=== PATIENT | female | born 1965 | race Two or more races ===

== ENCOUNTER 2021-06-01 11:43 | Outpatient (REF) | payer MEDICAID, SELFPAY ==
--- NOTE | ~2021-06-01 | XR_ITS ---
EXAMINATION: XR KNEE, RIGHT CLINICAL INFORMATION: Pain COMPARISON: Previous x-ray May 2016 TECHNIQUE: Four views of the right knee. FINDINGS: Bone alignment is normal. No fracture or dislocation is seen. There is mild degenerative change at the medial femoral tibial and with joint space narrowing and patellofemoral joint with small osteophytes. There are small osteophytes at the quadriceps tendon insertion to the patella and patellar tendon origin. There is no joint effusion. XR/XR knee RT 4V IMPRESSION: Mild degenerative changes.
== END 2021-06-01 11:44 | disposition home or self-care (01) ==
LOC: HO.XRAY 11:43
PROVIDERS: PCP Internal Medicine Geriatric Medicine; Visit Provider Internal Medicine Geriatric Medicine
DX: M25.561 Pain in right knee (principal)
CPT/HCPCS: 73564

== ENCOUNTER 2023-08-27 09:24 | Outpatient (REF) | payer MEDICAID, SELFPAY ==
--- NOTE | ~2023-08-27 | XR_ITS ---
EXAMINATION: XR KNEE, RIGHT CLINICAL INFORMATION: Pain in the right knee following fall 2 weeks ago COMPARISON: 08/27/2023 TECHNIQUE: Four views of the right knee. FINDINGS: There are mild degenerative changes seen joint effusion seen. There is narrowing of the medial compartment of left knee joint with marginal spurring. There is no fracture seen. Soft tissues are otherwise are unremarkable. XR/XR knee RT 4V IMPRESSION: Small joint effusion and degenerative changes
--- NOTE | ~2023-08-27 | XR_ITS ---
EXAMINATION: XR KNEE, LEFT CLINICAL INFORMATION: Pain after fall 2 weeks ago COMPARISON: None available. TECHNIQUE: Four views of the left knee. FINDINGS: There is no evidence of fracture or dislocation and no joint effusion seen. There is mild narrowing of medial compartment of left knee joint with marginal spur spurring seen medially. XR/XR knee LT 4V IMPRESSION: Mild degenerative changes of the left knee joint. No fracture or joint effusion seen.
== END 2023-08-27 09:25 | disposition home or self-care (01) ==
LOC: HO.HHCX 09:24
PROVIDERS: Visit Provider Internal Medicine Geriatric Medicine
DX: M25.561 Pain in right knee (principal); M25.562 Pain in left knee
CPT/HCPCS: 73564

== ENCOUNTER 2023-09-27 | Outpatient (REF) | payer MEDICAID, SELFPAY ==
[2023-10-01 23:54] LABS: HPV mRNA E6/E7 rflx Not Detected (Not Detected)
== END 2023-09-27 00:01 ==
LOC: HO.HHCLNP
PROVIDERS: Visit Provider Advanced Practice Midwife
DX: Z12.4 Encounter for screening for malignant neoplasm of cervix (principal); Z11.51 Encounter for screening for human papillomavirus (HPV)
CPT/HCPCS: 87624; 88142

== ENCOUNTER 2023-11-20 13:52 | Outpatient (REF) | payer MEDICAID, SELFPAY ==
[2023-11-20 16:24] LABS: MANUAL DIFF FLAG NO
[2023-11-20 16:25] LABS: Basophils Percent Auto 0.4 % (0-2); Eosinophils Absolute Auto 0.1 X10*3/uL (0.0-0.4); Eosinophils Percent Auto 0.9 % (0-4); Hemoglobin 14.9 g/dl (12.0-16.0); Imm Gran Abs Auto 0.04 X10*3/uL (0.00-0.03); Imm Gran Pct Auto 0.4 % (0.0-0.4); Lymphocytes Absolute Auto 1.7 X10*3/uL (1.2-4.9); Lymphocytes Percent Auto 17.4 % (20-40); Mean Corpuscular HGB Conc 33.1 g/dl (31.0-35.0); Mean Corpuscular Hemoglobin 30.5 pg (27.0-33.0); Mean Corpuscular Volume 92.2 fL (80.0-98.0); Mean Platelet Volume 12.6 fL (9.4-12.3); Monocytes Absolute Auto 0.7 X10*3/uL (0.1-1.2); Neutrophils Absolute Auto 7.1 x10*3/uL (2.0-8.3); Neutrophils Percent Auto 73.9 % (45-73); Platelet Count 251 X10*3/uL (160-400); Red Blood Count 4.88 X10*6/uL (4.20-5.50); Red Cell Distribution Width 12.9 % (11.0-16.0); White Blood Count 9.6 X10*3/uL (4.8-10.8)
[2023-11-20 17:01] LABS: Alanine Aminotransferase 29 U/L (0-31); Albumin Level 4.6 g/dL (3.5-5.0); Alkaline Phosphatase 126 U/L (39-117); Anion Gap 13 (12-20); Aspartate Amino Transferase 26 U/L (5-31); Bilirubin Total 0.4 mg/dL (0.0-1.0); Blood Urea Nitrogen 9 mg/dL (9-16); Calcium 10.3 mg/dL (8.4-10.2); Carbon Dioxide 33 mmol/L (22-29); Chloride 97 mmol/L (96-108); Estimated Glomerular Filt Rate > 60; Glucose Random 162 mg/dL (60-115); Sodium 140 mmol/L (135-145); Total Protein 8.9 g/dL (6.5-8.0)
[2023-11-20 17:10] LABS: Erythrocyte Sedimentation Rate 36 MM/HR (0-20)
[2023-11-20 17:17] LABS: TSH reflex Free T4 3.14 uIU/mL (0.32-4.0)
== END 2023-11-20 13:53 | disposition home or self-care (01) ==
LOC: HO.HHCL 13:52
PROVIDERS: Visit Provider Internal Medicine Geriatric Medicine
DX: E11.65 Type 2 diabetes mellitus with hyperglycemia (principal); R00.0 Tachycardia, unspecified; Z79.4 Long term (current) use of insulin
CPT/HCPCS: 36415; 80053; 84443; 85025; 85652; 86140

== ENCOUNTER 2023-12-11 15:03 | Outpatient (REF) | payer MEDICAID, SELFPAY ==
[2023-12-11 16:37] LABS: Anion Gap 12 (12-20); Blood Urea Nitrogen 11 mg/dL (9-16); Calcium 9.2 mg/dL (8.4-10.2); Carbon Dioxide 31 mmol/L (22-29); Chloride 101 mmol/L (96-108); Estimated Glomerular Filt Rate > 60; Glucose Random 243 mg/dL (60-115); Potassium 3.3 mmol/L (3.3-5.1); Sodium 141 mmol/L (135-145)
== END 2023-12-11 15:04 | disposition home or self-care (01) ==
LOC: HO.HHCL 15:03
PROVIDERS: Visit Provider Internal Medicine Geriatric Medicine
DX: E87.6 Hypokalemia (principal)
CPT/HCPCS: 36415; 80048

== ENCOUNTER → 2024-01-11 12:30 | Outpatient (REF) | payer MEDICAID, SELFPAY ==
--- NOTE | 2024-01-11 12:34 | CA_ITS ---
Transthoracic Echocardiogram Patient (Last, First, Middle): Ashley Osborne Y Gender: Female Date of : 1965 Age: 58 Procedure Date: 01/11/2024 Procedure Type: Transthoracic Echocardiogram Location: OP Height: 160.02 cm Weight: 102.06 kg BSA: 2.03 m2 Heart Rate: bpm BP: 138 / 70 mmHg Radio Performer: TO Referring MD: Mark Juan MD Symptoms: ABNORMAL ECHO R93.1 Study Quality: Fair/Contrast ECG Rhythm: Sinus Conclusions: - The left ventricular systolic function is normal. The calculated ejection fraction is 64% by biplane method. - No obvious valvular pathology seen on this study. - Small to moderate pericardial effusion posterior to left ventricle. Findings Procedure Information Contrast agent, definity, is being given per protocol without apparent complications. The study quality is limited by patients body habitus. Left Ventricle Normal left ventricular cavity size. There is normal left ventricular wall thickness. The left ventricular systolic function is normal. The calculated ejection fraction is 64% by biplane method. There is no evidence of regional wall motion abnormalities. Evidence suggests grade I (mild) diastolic dysfunction. Right Ventricle Normal right ventricular cavity size and systolic function. Atria Both atria are normal in size. Aortic Valve There is a normal trileaflet aortic valve. There is no aortic valve stenosis. There is no aortic valve regurgitation. Mitral Valve The mitral valve appears normal. There is trace mitral valve regurgitation. There is no mitral valve stenosis. Pulmonic Valve The pulmonic valve is likely normal. Tricuspid Valve There is trace tricuspid valve regurgitation. There is no evidence of pulmonary hypertension. Great Vessels The asc aorta is normal in size. Venous The inferior vena cava is mildly dilated and collapses less than 50% with inspiration. Pericardium/Pleural There are no definitive echocardiographic findings of tamponade physiology. Small to moderate pericardial effusion posterior to left ventricle. Prior Study Comparison No significant change compared to prior study dated: 06/29/2017. Pericardial effusion similar to prior study on review of images. Recommendations, Care & Conclusions No obvious valvular pathology seen on this study. Measurements 2D Linear Measurements LVOT Diam: 2.00 3.0+(-)1.3 cm 2D Systolic Function EF 4C: 61.70 >55% EF 2C: 67.70 >55% EF BiP: 64.40 >55% Mitral Valve MV VTI: 0.27 MV Pk Chinedu: 1.18 MV Mn Chinedu: 0.78 MV Pk Grad: 6.00 MV Mn Grad: 3.00 MV Pk E: 0.79 MV PK A: 1.08 MV Decel Time: 142.00 E/A: 0.70 E'Lateral: 6.74 E'Medial: 6.09 E/E' Med: 13.00 E/E' Lat: 11.80 PHT: 42.00 MVA PHT: 5.24 MVA Continuity: 2.75 Decel [place]: 5.57 Aortic Valve AoV Pk Chinedu: 1.54 AoV Mn Chinedu: 1.02 AoV VTI: 0.30 AoV Pk Grad: 9.00 Aov Mn Grad: 5.00 DARION Cont.VTI: 2.44 LVOT LVOT Pk Chinedu: 1.16 LVOT Mn Chinedu: 0.74 LVOT VTI: 0.23 LVOT Pk Grad: 5.00 LVOT Mn Grad: 3.00 LVOT Diam: 2.00 LVOT Area: 3.14 Diastolic Function MV Pk E: 0.79 MV Pk A: 1.08 E/A: 0.70 E'Medial: 6.09 E/E' Med: 13.00 E' Laterial: 6.74 E/E' Lat: 11.80 Right Ventricle TAPSE (mm): 18.50 TVS' Chinedu: 11.90 Tricuspid Valve TR Pk Chinedu: 1.95 TR Pk Grad: 15.00 RA Press: 8.00 RVSP: 23.00 Great Vessels Aorta Sinus of Valsalva: 2.83 2.0-3.5 cm Ao Asc: 2.70 2.1-3.4 cm Updated in Other Vendor System with Status of Final Tobias Francis MD electronically signed on 01/12/2024 12:51:13 PM with status of Final
== END ==
LOC: HO.CARD 12:30
PROVIDERS: PCP Internal Medicine Geriatric Medicine; Visit Provider Internal Medicine Geriatric Medicine
DX: R93.1 Abnormal findings on diagnostic imaging of heart and coronary circulation (principal)
CPT/HCPCS: 93306; Q9957

== ENCOUNTER → 2024-01-11 12:34 | Outpatient (BNV) | payer MEDICAID, SELFPAY | PROVIDERS: PCP Internal Medicine Geriatric Medicine; Visit Provider Internal Medicine | DX: I31.39 Other pericardial effusion (noninflammatory) (principal) | CPT/HCPCS: 93306 ==

== ENCOUNTER 2024-04-30 13:16 | Outpatient (AMB) | payer MEDICAID, SELFPAY ==
--- NOTE | 2024-04-30 13:44 | MHC.OFFVIS ---
Vital Signs 04/30/24 13:45 Height 5 ft 3 in Weight 222 lb 10.67 oz BMI 39.4 BP 118/60 Blood Pressure Location Lt brachial Position Sitting Pulse 99 Pulse Source Monitor Intake Visit Reasons: PCP REF/Chronic pericardial effusion Forging Die Sinker Required: Yes Forging Die Sinker Name: SMITH [id number] Allergies latex [Latex] Allergy (Mild, Unverified 06/10/20 17:38) RASH Medication List - Last Reconciled 04/30/24 by Tobias Francis MD amitriptyline 50 mg PO BEDTIME cholecalciferol (vitamin D3) 50 mcg PO QAM hydrochlorothiazide 25 mg PO QAM insulin lispro 24 units subcut TID insulin lispro protamin-lispro 100 unit/mL (50-50) (Humalog Mix 50-50 Insuln U-100) 25 units subcut DAILY losartan 25 mg PO QAM metoprolol tartrate 25 mg PO montelukast 10 mg PO BEDTIME multivitamin 1 tab PO QAM pravastatin 20 mg PO BEDTIME quetiapine 400 mg PO BEDTIME sitagliptin phos-metformin 50-500 mg (Janumet) 1 tab PO BID HPI Comments Details: Ashley has been referred here for evaluation of pericardial effusion. She had an echocardiogram few months back and that showed a small pericardial effusion. Patient herself does not have any clear cardiac symptoms like chest pains or in fact anything else of cardiac nature. She has many comorbidities but no known cardiac issues. [facility] Medical History (Updated 04/30/24 @ 15:23 by Tobias Francis MD) Pericardial effusion Asthma Diabetes Family History (Updated 04/30/24 @ 14:04 by Deb Natarajan) Father Heart problem Social History (Updated 04/30/24 @ 14:04 by Deb Natarajan) Alcohol intake: never Patient Tobacco Use Status: Never used Tobacco Review of Systems Const Denies weakness ENT Denies dizziness Card Denies chest pain, Denies chest pain with activity, Denies syncope, Denies rapid heart rate, Denies pedal edema, Denies edema, Denies leg edema, Denies lightheadedness, Denies palpitations, Denies dyspnea, Denies dyspnea on exertion and Denies orthopnea Resp Denies cough, Denies dyspnea and Denies dyspnea on exertion GI Denies hematochezia and Denies change in stool character Musc Denies abnormal gait, Denies muscle cramps, Denies muscle weakness, Denies numbness, Denies radiating pain into limb and Denies tingling Neuro Denies abnormal gait, Denies dizziness, Denies syncope, Denies numbness, Denies tingling and Denies weakness Endo Denies palpitations Physical Exam Vital Signs: Last Vital Signs Pulse 99 04/30/24 13:45 BP 118/60 04/30/24 13:45 BMI result Body Mass Index 39.4 Const General: comfortable and no acute distress Orientation/consciousness: patient oriented x3 HEENT Other: Unremarkable Head: Yes normal to inspection Neck Neck: Yes normal visual inspection Chest Chest palpation & inspection: normal inspection of the chest Resp Auscultation: clear to auscultation bilaterally Cardio Palpation: normal PMI Heart sounds: S1 normal heart sound present, S2 normal heart sound present, no gallops, no murmurs and no rubs GI Palpation (GI): Soft to palpation Back/Spine/Pelvis Other: unremarkable Skin General skin exam: no rashes or lesions noted Neuro General: patient oriented x3 Extrem General: Yes normal to inspection Psych Mental Status: mental status grossly normal Office Procedures EKG Details: EKG with underlying sinus rhythm at 99/Min; low-voltage QRS complexes; nonspecific ST-T changes; slight AR prolongation to 208 millisecond; [place]. [id number], Complete Assessment & Plan Assessment & Plan (1) Pericardial effusion: Code(s): I31.39 - Other pericardial effusion (noninflammatory) Category: Medical Plan Cardiac data reviewed. Echocardiogram from December of this year shows a small to moderate pericardial effusion posterior to left ventricle. Of note, thought to be similar to a prior study from 2017. Hence it has been stable for at least 7 years. Preserved LVEF at 64%. In a [facility] echocardiogram from September of this year, it was thought to be either pericardial fat or organized pericardial effusion. In a CT scan at [facility] again from September of this year, again noticed pericardial effusion and small pleural effusions. Overall, suspect that she has a chronic pericardial effusion which is not really causing any symptoms. Hence no specific management. We can probably recheck this with an echocardiogram in about 2 years or so as there are not been any clinically significant changes in at least 7 years. Etiology for this is unclear. It seems she does have elevated sed rate and CRP and hence could point to an inflammatory state but rheumatoid factor and KATE screen is negative. Unremarkable thyroid. No history of CKD. Findings and plan discussed with patient as well as significant other. biomedical engineering technologist used. Coding Level of Care Code New Pt Level 4 (14404) Diagnoses Pericardial effusion I31.39 CPT Codes EKG - CPT: 84859-[id number], Complete ([id number])
[2024-04-30 13:45] VITALS: BP 118/60; PULSE 99; BMI 39.4
== END 2024-04-30 14:20 | disposition home or self-care (01) ==
PROVIDERS: PCP Internal Medicine Geriatric Medicine; Visit Provider Internal Medicine
DX: I31.39 Other pericardial effusion (noninflammatory) (principal); R94.31 Abnormal electrocardiogram [ECG] [EKG]
CPT/HCPCS: 93010; 99214

== ENCOUNTER → 2024-04-30 13:16 | Outpatient (BNVA) | payer MEDICAID, SELFPAY | PROVIDERS: PCP Internal Medicine Geriatric Medicine; Visit Provider Internal Medicine | DX: I31.39 Other pericardial effusion (noninflammatory) (principal); R94.31 Abnormal electrocardiogram [ECG] [EKG] | CPT/HCPCS: 93005; 99212 ==

== ENCOUNTER 2024-08-18 10:14 | Outpatient (REF) | payer MEDICAID, SELFPAY ==
[2024-08-18 13:56] LABS: Alanine Aminotransferase 39 U/L (0-31); Albumin Level 4.3 g/dL (3.5-5.0); Alkaline Phosphatase 105 U/L (39-117); Anion Gap 11 (12-20); Aspartate Amino Transferase 32 U/L (5-31); Bilirubin Direct 0.2 mg/dL (0.0-0.5); Bilirubin Total 0.3 mg/dL (0.0-1.0); Blood Urea Nitrogen 8 mg/dL (9-16); Calcium 9.4 mg/dL (8.4-10.2); Carbon Dioxide 31 mmol/L (22-29); Chloride 99 mmol/L (96-108); Cholesterol 218 mg/dL (<200); Estimated Glomerular Filt Rate > 60; Glucose Random 147 mg/dL (60-115); HDL Cholesterol 56 mg/dL (>40); LDL Cholesterol Calculated 135 mg/dL (<100); Potassium 3.4 mmol/L (3.3-5.1); Sodium 138 mmol/L (135-145); Triglycerides 136 mg/dL (<150)
== END 2024-08-18 10:15 | disposition home or self-care (01) ==
LOC: HO.HHCL 10:14
PROVIDERS: Visit Provider Internal Medicine Geriatric Medicine
DX: E11.65 Type 2 diabetes mellitus with hyperglycemia (principal); Z79.4 Long term (current) use of insulin; R79.89 Other specified abnormal findings of blood chemistry
CPT/HCPCS: 36415; 80048; 80061; 80076

== ENCOUNTER 2024-09-03 14:27 | Outpatient (REF) | payer MEDICAID, SELFPAY ==
--- NOTE | 2024-09-03 14:30 | EMG_ITS ---
Chief complaint: Patient states only right side is numb Reason for referral: Evaluate for Carpal Tunnel Syndrome Referred by: Dr. Juan Procedure done: Right upper extremity NCS/EMG Precautions and/or limitations: None The limb temperature was monitored continuously and remained between 32-36 degrees C during the performance of the NCS. Nerve Conduction Studies Anti Sensory Summary Table ?Stim Site NR Onset (ms) Norm Onset (ms) Peak (ms) Norm Peak (ms) O-P Amp (?V) Norm O-P Amp Site1 Site2 Delta-0 (ms) Dist (cm) Chinedu (m/s) Norm Chinedu (m/s) Right Median Anti Sensory (2nd Digit) Wrist ? 2.7 3.6 <3.6 46.9 >10 Wrist 2nd Digit 2.7 14.0 52 Right Radial Anti Sensory (Thumb) Forearm ? 1.2 2.1 <3.1 19.0 Forearm Thumb 1.2 0.0 Right Ulnar Anti Sensory (5th Digit) Wrist ? 0.9 3.1 <3.7 20.1 >15.0 Wrist 5th Digit 0.9 14.0 156 Motor Summary Table ?Stim Site NR Onset (ms) Norm Onset (ms) O-P Amp (mV) Norm O-P Amp iAmp (mV) Amp (1st) (%) Site1 Site2 Delta-0 (ms) Dist (cm) Chinedu (m/s) Norm Chinedu (m/s) Right Median Motor (Abd Poll Brev) Wrist ? 3.8 <3.9 10.3 >4.5 11.8 100.0 Elbow Wrist 3.4 19.0 56 >45 Elbow ? 7.2 8.5 10.5 82.5 Right Ulnar Motor (Abd Dig Minimi) Wrist ? 2.8 <3.0 8.3 >5 9.5 100.0 B Elbow Wrist 3.2 19.0 59 >45 B Elbow ? 6.0 8.2 9.4 98.8 A Elbow B Elbow 1.7 10.0 59 >45 A Elbow ? 7.7 8.0 9.5 96.4 EMG ?Side Muscle Nerve Root Ins Act Fibs Psw Amp Dur Poly Recrt Int Pat Comment Right 1stDorInt Ulnar C8-T1 Nml Nml Nml Nml Nml 0 Nml Complete Right FlexCarRad Median C6-7 Nml Nml Nml Nml Nml 0 Nml Complete Right Biceps Musculocut C5-6 Nml Nml Nml Nml Nml 0 Nml Complete Right Triceps Radial C6-7-8 Nml Nml Nml Nml Nml 0 Nml Complete Right Deltoid Axillary C5-6 Nml Nml Nml Nml Nml 0 Nml Complete FINDINGS: All motor and sensory nerves tested showed normal latencies, amplitudes and conduction velocities. Concentric needle EMG was performed in selected muscles of the right upper extremity. Study did not reveal signs of electric abnormalities as shown in the table above. IMPRESSION: 1. This is a normal study. 2. There is no electrodiagnostic evidence for median neuropathy, ulnar neuropathy, brachial plexopathy, or cervical radiculopathy. Thank you for your kind referral. Bev Waggoner MD, KATTY Board Certified, [place] Board of Physical Medicine and Rehabilitation (ABPMR) Board Certified, [place] Board of Electrodiagnostic Medicine (ABEM) CODIN [id number] MTDD
== END 2024-09-03 14:28 | disposition home or self-care (01) ==
LOC: HO.NEURO 14:27
PROVIDERS: PCP Internal Medicine Geriatric Medicine; Visit Provider Internal Medicine Geriatric Medicine
DX: R20.0 Anesthesia of skin (principal)
CPT/HCPCS: 95886; 95909

== ENCOUNTER → 2024-09-03 14:30 | Outpatient (BNV) | payer MEDICAID, SELFPAY | PROVIDERS: PCP Internal Medicine Geriatric Medicine; Visit Provider Physical Medicine & Rehabilitation | DX: R20.0 Anesthesia of skin (principal); R20.2 Paresthesia of skin | CPT/HCPCS: 95886; 95909 ==

== ENCOUNTER 2025-02-17 11:37 | Outpatient (REF) | payer MEDICAID, SELFPAY ==
--- OUTSIDE RECORDS SUMMARY | 2025-02-17 12:17 | XMS_ITS | Encounter Summary ---
Author Organization [employer] Address [address] [place] [address] [address] [place] [address] Care Team Providers Care Durable Medical Equipment Repairer Name Role Phone Name, Mark QUINTANA Primary Care Provider [phone] Veronica Mclaughlin PharmD Unavailable [phone] Reason for Visit * Reason Comments Med Refill Encounter Details Date Type Department Care Team (Late st Contact Info) Description 06/08/2024 Refill [facility]S [address] [place] [address] Name, MD Mark [address] [place] [address] Social History Tobacco Use Types Packs/Day Years Used Date Smoking Tobacco: Never Smokeless Tobacco: Never Alcohol Use Standard Drinks/Week Comments Never 0 (1 standard drink = 0.6 oz pur e alcohol) Depression Answer Date Recorded Patient Health Questionnaire-9 Score 24 10/09/2023 Patient Health Questionnaire-9 Score 24 10/09/2023 Last PHQ-9: Questionnaire Data Not on file 0 10/09/2023 Housing Stability Answer Date Recorded What is your housing situation today? I have soila esparza 07/09/[address] you li ve. Do you have problems with any of the following? None of the above 07/09/2023 Food Insecurity Answer Date Recorded Within the past 12 months, y ou worried that your food would run out before you got money to buy more: Sometimes True 2023 Within the past 12 months,th e food you bought just didn't last and you didn't have enough money to get more: Sometimes True 10/30/2023 Transportation Answer Date Recorded In the past 12 months, has l ack of transportation kept you from medical appts, meetings, work or from getting things needed for daily living? No 07/09/2023 Utilities Answer Date Recorded In the past 12 months, has t he electric, gas, oil or water company threatened to shut off services in your home? No 07/09/2023 Depression Answer Date Recorded Patient Health Questionnaire-2 Score 6 10/09/2023 Comments No Sex and Gender Information Value Date Recorded Sex Assigned at Female 07/24/2022 10:29 AM EDT Legal Sex Female 10:29 AM EDT Gender Identity Female 07/24/2022 10:29 AM EDT Sexual Orientation Don't know 07/24/2022 10 :29 AM EDT documented as of this encounter Plan of Treatment Upcoming Encounters Date Type Department Care Team (Late st Contact Info) Description 03/17/2025 11:00 AM EDT Office Visit [facility] MEDICINE [address] [place] [address] Name, MD Mark [address] [place] [address] 04/17/2025 1:00 PM EDT Office Visit [facility] MEDICINE [address] [place] [address] Hugo Epps MD [address] [place] [address] 07/22/2025 2:30 PM EDT Office Visit [facility] OPTOMETRY [address] [place] [address] SanfordO[address]ys lr, OD [address] [place] [address] documented as of this encounter Goals Goal Patient Goal Type Associated Problems Recent Progress Patient-Stated? Author Hemoglobin A1c < 7 Result Component 7(02/17/2025 11:46 AM EDT) No Veronica Mclaughlin, PharmD Record your blood sugar as directed Result Component No Veronica Mclaughlin, PharmD Note: Patient will use CGM, ensuring sensor is scanned at least once every 8 hours to capture 24H data. Check BG manually, as required. documented as of this encounter Visit Diagnoses Not on filedocumented in this encounter Additional Health Concerns Assessment Noted Time PHQ-9 Depression Total Score: 24 024 9:15 AM EST documented as of this encounter Care Teams Durable Medical Equipment Repairer Relationship Specialty Start Date End Date Name, MD Mark [address] [place] [address] PCP - General Family Medicine 01/18/16 Veronica Mclaughlin PharmD [address] [place] [address] Pharmacist Internal Medicine 08/15/22 02/16/25 documented as of this encounter
[2025-02-17 13:54] LABS: Alanine Aminotransferase 30 U/L (0-31); Albumin Level 4.4 g/dL (3.5-5.0); Alkaline Phosphatase 107 U/L (39-117); Aspartate Amino Transferase 28 U/L (5-31); Bilirubin Direct 0.2 mg/dL (0.0-0.5); Bilirubin Total 0.6 mg/dL (0.0-1.0); Cholesterol 165 mg/dL (<200); HDL Cholesterol 49 mg/dL (>40); LDL Cholesterol Calculated 96 mg/dL (<100); Total Protein 7.7 g/dL (6.5-8.0); Triglycerides 103 mg/dL (<150)
[2025-02-17 14:11] LABS: Reflex LDLD? No
== END 2025-02-17 11:38 | disposition home or self-care (01) ==
LOC: HO.HHCL 11:37
PROVIDERS: Visit Provider Internal Medicine Geriatric Medicine
DX: E11.65 Type 2 diabetes mellitus with hyperglycemia (principal); Z79.4 Long term (current) use of insulin; R79.89 Other specified abnormal findings of blood chemistry; K76.0 Fatty (change of) liver, not elsewhere classified
CPT/HCPCS: 36415; 80061; 80076

== ENCOUNTER 2025-03-26 08:02 | Outpatient (AMB) | payer MEDICAID, SELFPAY ==
--- OUTSIDE RECORDS SUMMARY | 2025-03-26 08:05 | XMS_ITS | Encounter Summary ---
Author Organization [employer] Address [address] [place] [address] [address] [place] [address] Care Team Providers Care Physical Medicine Physician Name Role Phone Name, Mark QUINTANA Primary Care Provider [phone] Veronica Mclaughlin PharmD Unavailable [phone] Reason for Visit * Reason Comments Med Refill Encounter Details Date Type Department Care Team (Late st Contact Info) Description 06/08/2024 Refill [facility] MED & PEDS [address] [place] [address] Name, MD Mark [address] [place] [address] Social History Tobacco Use Types Packs/Day Years [...] Care Team (Late st Contact Info) Description 07/22/2025 2:30 PM EDT Office Visit [facility] OPTOMETRY [address] [place] [address] Odalys Christina, OD [address] [place] [address] documented as of this encounter Goals Goal Patient Goal Type Associated Problems Recent Progress Patient-Stated? Author Hemoglobin A1c < 7 Result Component 7(02/17/2025 11:46 AM EDT) No Veronica Mclaughlin, PharmD Record your blood sugar as directed Result Component No Veronica Mclaughlin PharmD Note: Patient will use CGM, ensuring sensor is scanned at least once every 8 hours to capture 24H data. Check BG manually, as required. documented as of this encounter Visit Diagnoses Not on filedocumented in this encounter Additional Health Concerns Assessment Noted Time PHQ-9 Depression Total Score: 24 024 9:15 AM EST documented as of this encounter Care Teams Physical Medicine Physician Relationship Specialty Start Date End Date Name, MD aMrk [address] [place] [address] PCP - General Family Medicine 01/18/16 Puia, Raul Martin [address] [place] [id number] Pharmacist Internal Medicine 08/15/22 02/16/25 documented as of this encounter
[2025-03-26 08:21] VITALS: BP 120/68; PULSE 116; BMI 37.1
--- NOTE | 2025-03-26 08:21 | A.OFFVIS_ITS ---
Vital Signs 03/26/25 08:21 Height 5 ft 3 in Weight 209 lb 7.026 oz BMI 37.1 BP 120/68 Blood Pressure Location Lt brachial Position Sitting Pulse 116 H Pulse Source Monitor Intake Visit Reasons: f/u pcp req Clerk Operator Required: Yes Clerk Operator Name: JEAN [id number] Allergies latex (Latex) Allergy (Mild, Unverified 06/10/20 17:38) RASH Medication List - Last Reconciled 03/26/25 by Tobias Francis MD amitriptyline 50 mg PO BEDTIME cholecalciferol (vitamin D3) 50 mcg PO QAM hydrochlorothiazide 25 mg PO QAM insulin lispro 24 units subcut TID insulin lispro protamin-lispro 100 unit/mL (50-50) (Humalog Mix 50-50 Insuln U- 100) 25 units subcut DAILY losartan 25 mg PO QAM metoprolol tartrate 25 mg PO montelukast 10 mg PO BEDTIME multivitamin 1 tab PO QAM pravastatin 20 mg PO BEDTIME quetiapine 400 mg PO BEDTIME sitagliptin phos-metformin 50-500 mg (Janumet) 1 tab PO BID HPI Comments Details: Ashley returns for follow-up. She was previously seen regarding a pericardial effusion. In the past, she did not have any cardiac symptoms at all. However, she states that for the last month or so she has been having random chest pains. This can happen with and without activity. She feels like sharp pains. She is also getting tired with activity with some shortness of breath. Hence she has been referred for follow-up. [facility] Medical History (Updated 03/26/25 @ 09:27 by Tobias Francis MD) Pericardial effusion Asthma Diabetes Family History (Updated 04/30/24 @ 14:04 by Deb Natarajan) Father Heart problem Social History (Updated 04/30/24 @ 14:04 by Deb Natarajan) Alcohol intake: never Patient Tobacco Use Status: Never used Tobacco Review of Systems Const Reports headache(s) and Denies weakness ENT Denies dizziness and Reports headache(s) Card Reports chest pain, Denies chest pain with activity, Denies syncope, Denies rapid heart rate, Denies pedal edema, Denies edema, Denies leg edema, Denies lightheadedness, Denies palpitations, Reports dyspnea, Denies dyspnea on exertion and Denies orthopnea Resp Denies cough, Reports dyspnea and Denies dyspnea on exertion GI Denies hematochezia and Denies change in stool character Musc Denies abnormal gait, Denies muscle cramps, Denies muscle weakness, Denies numbness, Denies radiating pain into limb and Denies tingling Neuro Denies abnormal gait, Denies dizziness, Denies syncope, Reports headache(s), Denies numbness, Denies tingling and Denies weakness Endo Denies palpitations Physical Exam Vital Signs: Last Vital Signs Pulse 116 H 03/26/25 08:21 BP 120/68 03/26/25 08:21 BMI result Body Mass Index 37.1 Const General: comfortable and no acute distress Orientation/consciousness: patient oriented x3 HEENT Other: Unremarkable Head: Yes normal to inspection Neck Neck: Yes normal visual inspection Chest Chest palpation & inspection: normal inspection of the chest Resp Auscultation: clear to auscultation bilaterally Cardio Palpation: normal PMI Heart sounds: S1 normal heart sound present, S2 normal heart sound present, no gallops, no murmurs and no rubs GI Palpation (GI): Soft to palpation Back/Spine/Pelvis Other: unremarkable Skin General skin exam: no rashes or lesions noted Neuro General: patient oriented x3 Extrem General: Yes normal to inspection Psych Mental Status: mental status grossly normal Office Procedures EKG Details: EKG with atrial fibrillation at a rate of 116/Min; low-voltage complexes; cannot exclude old inferior infarct but could be from body habitus, [place] [id number], Complete Assessment & Plan Assessment & Plan (1) Pericardial effusion: Code(s): I31.39 - Other pericardial effusion (noninflammatory) Category: Medical (2) Precordial chest pain: Code(s): R07.2 - Precordial pain Category: Medical Plan Cardiac data reviewed. Echocardiogram from December 2024 shows a small to moderate pericardial effusion posterior to left ventricle. Of note, thought to be similar to a prior study from 2017. Hence it has been stable for at least 7 years. Preserved LVEF at 64%. In a [facility] echocardiogram from 09/2024, it was thought to be either pericardial fat or organized pericardial effusion. In a CT scan at [facility] again from 09/2024, again noticed pericardial effusion and small pleural effusions. Overall, she has got a chronic pericardial effusion which was stable as of last year. As she is not complaining of chest pain, we will repeat an echocardiogram to see if there is any increase in size or other new abnormalities. She also has some tachycardia but her heart rate was fast even last year. Could be related to deconditioning. With regard to the etiology for pericardial effusion, not clear. History of elevated ESR and CRP which could point to inflammatory state but KATE screen/8 factor were negative. Unremarkable thyroid. No CKD history. We will follow her up after the echocardiogram is completed. Discussed using main line station engineer. Discussion Notes I discussed with the patient the need for a repeat echocardiogram to monitor the pericardial effusion and assess any changes. We reviewed her current medication regimen, emphasizing the importance of adherence to insulin and antihypertensive therapy. The patient was informed that the echocardiogram should be completed by next week for timely follow-up. Patient was informed and verbally consented to the use of an ambient scribe for clinic note documentation during this visit. Orders: Orders CA echo transthoracic complete Today I31.39 - Other pericardial effusion (noninflammatory) Patient Instructions: - Continue taking insulin and blood pressure medications as prescribed. - Schedule and complete the echocardiogram. Coding Level of Care Code Est Pt Level 4 (89780) Complex EM visit Add On G2211 Diagnoses Pericardial effusion I31.39 Precordial chest pain R07.2 CPT Codes EKG - CPT: 51457-[id number], Complete ([id number])
== END 2025-03-26 08:42 | disposition home or self-care (01) ==
LOC: HO.HCS 08:02
PROVIDERS: PCP Internal Medicine Geriatric Medicine; Visit Provider Internal Medicine
DX: I31.39 Other pericardial effusion (noninflammatory) (principal); R07.2 Precordial pain
CPT/HCPCS: 93010; 99214

== ENCOUNTER → 2025-03-26 08:02 | Outpatient (BNVA) | payer MEDICAID, SELFPAY | PROVIDERS: PCP Internal Medicine Geriatric Medicine; Visit Provider Internal Medicine | DX: R07.2 Precordial pain (principal); I31.39 Other pericardial effusion (noninflammatory) | CPT/HCPCS: 93005; 99212 ==

== ENCOUNTER → 2025-03-31 10:47 | Outpatient (REF) | payer MEDICAID, SELFPAY ==
--- NOTE | 2025-03-31 10:49 | CA_ITS ---
Transthoracic Echocardiogram Patient (Last, First, Middle): Ashley Osborne Y Gender: Female Date of : 1965 Age: 59 Procedure Date: 03/31/2025 Procedure Type: Transthoracic Echocardiogram Location: OP Height: 160.02 cm Weight: 95.71 kg BSA: 1.98 m2 Heart Rate: bpm BP: 120 / 68 mmHg Wrapper And Preserver: LYUBOV Referring MD: Tobias Francis MD Symptoms: I31.39 - Other pericardial effusion (noninflammatory) Study Quality: Fair Conclusions: - 1. Clbty-kn-oywakjwn pericardial effusion without clear evidence of tamponade 2. Normal LV ejection fraction of 60 65% 3. Normal cardiac valvular Dopplers 4. Normal RV systolic pressure Findings Left Ventricle Normal left ventricular size, thickness, and systolic function. The visually estimated ejection fraction is between 60-65%. Spectral Doppler is indicative of an impaired relaxation filling pattern. E/E prime ratio is between 8 and 15 consistent with indeterminate filling pressures. Right Ventricle Normal right ventricular cavity size and systolic function. Atria The left atrium is normal in size. Interatrial shunt cannot be excluded. The right atrium is normal in size. Aortic Valve The aortic valve was not well visualized. There is no aortic valve stenosis. There is no aortic valve regurgitation. Mitral Valve Likely normal mitral valve structure and function. There is trace mitral valve regurgitation. There is no mitral valve stenosis. Pulmonic Valve The pulmonic valve was not well visualized. Tricuspid Valve Likely normal tricuspid valve structure and function. There is trace tricuspid valve regurgitation. The right ventricular systolic pressure is normal. The right ventricular systolic pressure is 24 mmHg. Normal right atrial pressure. There is no evidence of pulmonary hypertension. Great Vessels All visible segments of the aorta are normal in size. The pulmonary artery was not well visualized. There is no dilatation of the ascending aorta measuring 2.60 cm. Venous The inferior vena cava is normal in size. Pericardium/Pleural There is a moderate loculated pericardial effusion overlying the left ventricle. There are no definitive echocardiographic findings of tamponade physiology. oqwuw-wz-gvpfssju circumferential pericardial effusion, more prominent near the left ventricle without evidence of tamponade Prior Study Comparison No significant change compared to prior study dated: 01/11/2024. Measurements 2D Linear Measurements IVSd: 1.14 0.6-0.9/0.6-1.0 cm LVIDd: 4.15 3.9-5.3/4.2-5.9 cm LVIDd Index: 2.10 2.4-3.2/2.2-3.1 cm/m2 LVIDs: 2.56 2.0-3.6 cm LVPWd: 0.70 0.7-1.1 cm LA Diam: 4.10 2.7-3.8/3.0-4.0 cm LAIDs Index: 2.07 1.5-2.3 cm/m2 LV Mass: 149.19 67-162/88-224 g LV Mass Index: 75.35 43-95/49-115 g/m2 LVOT Diam: 2.00 3.0+(-)1.3 cm 2D Systolic Function EF 4C: 65.90 >55% EF 2C: 62.20 >55% EF BiP: 64.80 >55% Mitral Valve MV Pk E: 0.84 MV PK A: 1.29 MV Decel Time: 117.00 E/A: 0.60 E'Lateral: 5.77 E'Medial: 5.00 E/E' Med: 16.70 E/E' Lat: 14.50 PHT: 34.00 MVA PHT: 6.47 Decel [place]: 7.16 Aortic Valve AoV Pk Chinedu: 1.42 AoV Mn Chinedu: 0.90 AoV VTI: 0.28 AoV Pk Grad: 8.00 Aov Mn Grad: 4.00 DARION Cont.VTI: 2.35 LVOT LVOT Pk Chinedu: 1.19 LVOT Mn Chinedu: 0.73 LVOT VTI: 0.21 LVOT Pk Grad: 6.00 LVOT Mn Grad: 3.00 LVOT Diam: 2.00 LVOT Area: 3.14 Diastolic Function MV Pk E: 0.84 MV Pk A: 1.29 E/A: 0.60 E'Medial: 5.00 E/E' Med: 16.70 E' Laterial: 5.77 E/E' Lat: 14.50 Right Ventricle TAPSE (mm): 23.30 TVS' Chinedu: 12.80 Tricuspid Valve TR Pk Chinedu: 2.01 TR Pk Grad: 16.00 RA Press: 8.00 RVSP: 24.00 Great Vessels Aorta Sinus of Valsalva: 2.73 2.0-3.5 cm Ao Asc: 2.60 2.1-3.4 cm Updated in Other Vendor System with Status of Final Nacho Hernandez MD electronically signed on 04/01/2025 8:34:56 AM with status of Final
--- OUTSIDE RECORDS SUMMARY | 2025-03-31 11:51 | XMS_ITS | Encounter Summary ---
Author Organization [employer] Address [address] [place] [address] 7 [place] [address] Care Team Providers Care Neurology Manager Name Role Phone Name, Mark QUINTANA Primary Care Provider [phone] Veronica Mclaughlin PharmD Unavailable [phone] Reason for Visit * Reason Comments Med Refill Encounter Details Date Type Department Care Team (Late st Contact Info) Description 06/08/2024 Refill [facility] MED & PEDS [address] [place] [address] Name, MD Mark [address] [place] [address] Social History Tobacco Use Types Packs/Day Years [...] Description 07/22/2025 2:30 PM EDT Office Visit [facility] OPTOMETRY [address] [place] [address] Odalys Christina, OD [address] [place] [address] documented as of this encounter Goals Goal [...] documented as of this encounter Care Teams Neurology Manager Relationship Specialty Start Date End Date Name, MD Mark [address] [place] [address] PCP - General Family Medicine 01/18/16 Puia, Raul Martin [address] [place] [id number] Pharmacist Internal Medicine 08/15/22 02/16/25 documented as of this encounter
== END ==
LOC: HO.CARD 10:47
PROVIDERS: PCP Internal Medicine Geriatric Medicine; Visit Provider Internal Medicine
DX: I31.39 Other pericardial effusion (noninflammatory) (principal)
CPT/HCPCS: 93306

== ENCOUNTER → 2025-03-31 10:49 | Outpatient (BNV) | payer MEDICAID, SELFPAY | PROVIDERS: PCP Internal Medicine Geriatric Medicine; Visit Provider Internal Medicine Cardiovascular Disease | DX: I31.39 Other pericardial effusion (noninflammatory) (principal) | CPT/HCPCS: 93306 ==

== ENCOUNTER 2025-04-30 13:48 | Outpatient (AMB) | payer MEDICAID, SELFPAY ==
--- OUTSIDE RECORDS SUMMARY | 2025-04-30 13:53 | XMS_ITS | Encounter Summary ---
Author Organization [employer] Address [address] [place] [address] 7 [place] [address] Care Team Providers Care Pre K Lead Teacher Name Role Phone Name, Mark QUINTANA Primary Care Provider [phone] Veronica Mclaughlin PharmD Unavailable [phone] Reason for Visit * Reason Comments Med Refill Encounter Details Date Type Department Care Team (Late st Contact Info) Description 06/08/2024 Refill [facility] CHC MED & PEDS [address] [place] [address] Name, MD Mark [address] [place] [address] Social History Tobacco Use Types Packs/Day Years [...] Care Team (Late st Contact Info) Description 05/01/2025 9:30 AM EDT Office Visit [facility] MEDICINE [address] [place] [address] Hugo Epps MD [address] [place] [address] 07/07/2025 9:15 AM EDT Office Visit [facility] MEDICINE [address] [place] [address] Name, MD Mark [address] [place] [address] 07/22/2025 2:30 PM EDT Office Visit [facility] OPTOMETRY [address] [place] [address] SanfordOdalys lr, OD [address] [place] [address] documented as of this encounter Goals Goal [...] documented as of this encounter Care Teams Pre K Lead Teacher Relationship Specialty Start Date End Date Name, MD Mark [address] [place] [address] PCP - General Family Medicine 01/18/16 Veronica Mclaughlin PharmD [address] [place] [address] Pharmacist Internal Medicine 08/15/22 02/16/25 documented as of this encounter
--- NOTE | 2025-04-30 14:24 | A.OFFVIS_ITS ---
Vital Signs 04/30/25 14:25 Height 5 ft 3 in Weight 213 lb 13.574 oz BMI 37.9 BP 120/76 Blood Pressure Location Rt brachial Position Sitting Pulse 96 Pulse Source Pulse Oximeter Intake Visit Reasons: 4wk follow up/ Echo prior Intake Note: 4 wk f/up-echo Head Turbine Operator Required: Yes Head Turbine Operator Name: queenie/yemeni/jason [id number] Accompanied by: Significant Other Allergies latex (Latex) Allergy (Mild, Unverified 06/10/20 17:38) RASH Medication List - Last Reconciled 04/30/25 by Grover Schofield NP amitriptyline 50 mg PO BEDTIME cholecalciferol (vitamin D3) 50 mcg PO QAM hydrochlorothiazide 25 mg PO QAM insulin lispro 24 units subcut TID insulin lispro protamin-lispro 100 unit/mL (50-50) (Humalog Mix 50-50 Insuln U- 100) 25 units subcut DAILY losartan 25 mg PO QAM meclizine 25 mg PO TID PRN metoprolol tartrate 25 mg PO montelukast 10 mg PO BEDTIME multivitamin 1 tab PO QAM pravastatin 20 mg PO BEDTIME quetiapine 400 mg PO BEDTIME sitagliptin phos-metformin 50-500 mg (Janumet) 1 tab PO BID HPI Comments Details: This is a 59-year-old female patient coming in for a follow-up visit, acco mpanied by family member. A director workforce management was used throughout the visit. Patient has been following our office for evaluation of pericardial effusion that was noted over a year ago. Patient also with a history of hypertension, diabetes, and obesity. At her last visit in the office, patient had reported random chest pain for which patient underwent a repeat echo to evaluate the effusion size and that was negative for any changes. Today, patient continues to report intermittent chest pain was random in nature but now patient states that it is noted mostly with exertion. Patient is reporting that this starts epigastric and radiates into her left chest lasting few minutes to almost an hour. Patient is denying any associated symptoms of shortness of breath, palpitations, dizziness, orthopnea, PND, leg edema, presyncope or syncope. Patient is reporting compliance with all her medications. [facility] Medical History Pericardial effusion Asthma Diabetes Family History Father Heart problem Social History Alcohol intake: never Patient Tobacco Use Status: Never used Tobacco Review of Systems Const Denies chills, Denies fatigue, Denies fever(s), Denies frequent falls, Denies weakness, Denies weight gain and Denies weight loss ENT Denies dizziness Card Denies chest pain, Denies leg edema, Denies lightheadedness, Denies palpitations, Denies dyspnea and Denies dyspnea on exertion Resp Denies cough, Denies dyspnea and Denies dyspnea on exertion GI Denies hematochezia Musc Denies abnormal gait, Denies muscle weakness, Denies numbness, Denies radiating pain into limb and Denies tingling Neuro Denies abnormal gait, Denies dizziness, Denies frequent falls, Denies numbness, Denies tingling and Denies weakness Endo Denies fatigue and Denies palpitations Physical Exam Vital Signs: Last Vital Signs Pulse 96 04/30/25 14:25 BP 120/76 04/30/25 14:25 BMI result Body Mass Index 37.9 Const General: cooperative, healthy appearing, comfortable and no acute distress Orientation/consciousness: patient oriented x3 HEENT Head: Yes normal to inspection Neck Neck: Yes normal visual inspection, Yes trachea midline and Yes supple Chest Chest palpation & inspection: normal inspection of the chest Resp Effort & Inspection: normal respiratory effort Auscultation: clear to auscultation bilaterally, no crackles, no rales, no rhonchi and no wheezes Cardio Jugular venous distension: no JVD Palpation: normal PMI Rate: regular rate Rhythm: regular rhythm Heart sounds: S1 normal heart sound present, S2 normal heart sound present, no click, no gallops, no murmurs and no rubs Peripheral pulses: Peripheral pulses 2+ throughout GI Inspection: Yes normal to inspection Palpation (GI): Soft to palpation Auscultation: normal bowel sounds Skin General skin exam: no rashes or lesions noted Neuro General: patient oriented x3 Extrem General: Yes normal to inspection, No no pedal edema and No calf tenderness Psych Appearance: grossly normal Mental Status: mental status grossly normal Speech and movement: Normal speech and movement present Assessment & Plan Assessment & Plan (1) Precordial chest pain: Code(s): R07.2 - Precordial pain Category: Medical (2) Pericardial effusion: Code(s): I31.39 - Other pericardial effusion (noninflammatory) Category: Medical Plan 03/31/2025-patient underwent a repeat echocardiogram that showed normal LV systolic function with an ejection fraction between 60-65%, with yoqoz-wq-ryhlzsji pericardial effusion which is essentially unchanged. Given her ongoing symptoms of intermittent exertional chest pain and multiple risk factors, we will proceed with a myocardial perfusion study to evaluate for ischemic changes. Patient is worried about walking on the treadmill however would like to try. If patient is unable to walk on the treadmill, we can switch to Lexiscan. Blood pressure is well-controlled. Continue current regimen. Advised monitoring blood pressures with a goal less than 130/80. Continue with diabetes management with an A1c goal less than 7%. Continue statin therapy with the LDL goal less than 100. Advised heart healthy diet, regular exercise, losing weight, med compliance, and management of vascular risk factors. Follow up after completion of the test. In the interim, patient will call the office with any concerns or change in symptoms. Advised to seek ER care in case of exertional chest pain not resolved with rest. This note was generated using voice recognition software. While every effort has been made to ensure accuracy and proper coal passer, there may be occasional errors that could affect the content or meaning of the described symptoms. Orders: Orders CA stress test Today R07.2 - Precordial pain NM cardiolite stress test Today R07.2 - Precordial pain Coding Level of Care Code Est Pt Level 4 (47908) Complex EM visit Add On G2211 Diagnoses Precordial chest pain R07.2 Pericardial effusion I31.39 Time Spent (min) 34 Comment Time spent in reviewing the chart, test results, assessment, counseling and documentation.
[2025-04-30 14:25] VITALS: BP 120/76; PULSE 96; BMI 37.9
== END 2025-04-30 15:09 | disposition home or self-care (01) ==
LOC: HO.HCS 13:48
PROVIDERS: PCP Internal Medicine Geriatric Medicine
DX: R07.2 Precordial pain (principal); I31.39 Other pericardial effusion (noninflammatory)
CPT/HCPCS: 99214

== ENCOUNTER → 2025-04-30 13:48 | Outpatient (BNVA) | payer MEDICAID, SELFPAY | PROVIDERS: PCP Internal Medicine Geriatric Medicine | DX: R07.2 Precordial pain (principal); I31.39 Other pericardial effusion (noninflammatory) | CPT/HCPCS: 99212 ==

== ENCOUNTER 2025-05-01 09:59 | Outpatient (REF) | payer MEDICAID, SELFPAY ==
--- OUTSIDE RECORDS SUMMARY | 2025-05-01 10:03 | XMS_ITS | Encounter Summary ---
Author Organization [employer] Address [address] [place] [address] 7 [place] [address] Care Team Providers Care Software Qa Manager Name Role Phone Name, Mark QUINTANA Primary Care Provider [phone] Veronica Mclaughlin PharmD Unavailable [phone] Reason for Visit * Reason Comments Med Refill Encounter Details Date Type Department Care Team (Late st Contact Info) Description 06/08/2024 Refill [facility] CHC MED & PEDS [address] [place] [address] Name, MD Mark [address] [place] [address] Social History Tobacco Use Types Packs/Day Years [...] Care Team (Late st Contact Info) Description 07/07/2025 9:15 AM EDT Office Visit [facility] MEDICINE [address] [place] [address] Name, MD Mark [address] [place] [address] 07/22/2025 2:30 PM EDT Office Visit [facility] OPTOMETRY [address] [place] [address] Sanford, Odalys, OD [address] [place] [address] documented as of this encounter Goals Goal Patient Goal Type Associated Problems Recent Progress Patient-Stated? Author Hemoglobin A1c < 7 Result Component 7(02/17/2025 11:46 AM EDT) No PuiaVeronica, PharmD Record your blood sugar as directed [...] documented as of this encounter Care Teams Software Qa Manager Relationship Specialty Start Date End Date Name, MD Mark [address] [place] [address] PCP - General Family Medicine 01/18/16 Veronica Mclaughlin PharmD [address] [place] [address] Pharmacist Internal Medicine 08/15/22 02/16/25 documented as of this encounter
[2025-05-01 11:43] LABS: MANUAL DIFF FLAG NO
[2025-05-01 11:51] LABS: Hematocrit 40.8 % (37.0-47.0); Hemoglobin 13.9 g/dl (12.0-16.0); Imm Gran Abs Auto 0.02 X10*3/uL (0.00-0.03); Imm Gran Pct Auto 0.3 % (0.0-0.4); Lymphocytes Absolute Auto 1.9 X10*3/uL (1.2-4.9); Mean Corpuscular HGB Conc 34.1 g/dl (31.0-35.0); Mean Corpuscular Hemoglobin 29.9 pg (27.0-33.0); Mean Corpuscular Volume 87.7 fL (80.0-98.0); NRBC Abs Auto 0.000 X10*3/uL (0.0-0.012); NRBC Pct Auto 0.0 /100WBC (0.0-0.2); Platelet Count 255 X10*3/uL (160-400); Red Blood Count 4.65 X10*6/uL (4.20-5.50); White Blood Count 7.5 X10*3/uL (4.8-10.8)
[2025-05-01 12:07] LABS: Microalbum/Creatinine Ratio Ur 14.3 ug/mg cr (<30)
[2025-05-01 12:10] LABS: Alanine Aminotransferase 38 U/L (0-31); Albumin Level 4.7 g/dL (3.5-5.0); Alkaline Phosphatase 106 U/L (39-117); Anion Gap 11 (12-20); Aspartate Amino Transferase 37 U/L (5-31); Blood Urea Nitrogen 9 mg/dL (9-16); Calcium 9.4 mg/dL (8.4-10.2); Carbon Dioxide 34 mmol/L (22-29); Chloride 100 mmol/L (96-108); Estimated Glomerular Filt Rate > 60; Potassium 3.2 mmol/L (3.3-5.1); Sodium 142 mmol/L (135-145); Total Protein 8.2 g/dL (6.5-8.0)
[2025-05-01 12:33] LABS: HBS Num1 1.23 mIU/mL (0-7.99); HBc Num1 0.08 S/CO (0.00-0.79); HBsAGNum1 0.40 S/CO (0.00-0.99); HIV Num 1 0.06 S/CO (0.00-0.99); Hepatitis A Antibody IgM 0.12 Index (0-0.79); Hepatitis B Surface Antigen Negative (Negative); ~HepC Num1 0.14 S/CO (0.00-0.79); ~Hepatitis A Antibody IgM Nonreactive (Nonreactive); ~Hepatitis B Surface Antibody NONREACTIVE (Nonreactive); ~Hepatitis C Antibody Nonreactive (Nonreactive)
== END 2025-05-01 10:00 | disposition home or self-care (01) ==
LOC: HO.HHCL 09:59
PROVIDERS: PCP Internal Medicine Geriatric Medicine; Visit Provider Internal Medicine
DX: Z11.4 Encounter for screening for human immunodeficiency virus [HIV] (principal); Z11.59 Encounter for screening for other viral diseases; E11.65 Type 2 diabetes mellitus with hyperglycemia; L40.0 Psoriasis vulgaris; Z79.4 Long term (current) use of insulin
CPT/HCPCS: 36415; 80053; 82043; 82570; 85025; 86704; 86706; 86709; 86803; 87340; 87389

== ENCOUNTER 2025-05-11 13:17 | Outpatient (REF) | payer MEDICAID, SELFPAY ==
--- OUTSIDE RECORDS SUMMARY | 2025-05-11 14:09 | XMS_ITS | Encounter Summary ---
Author Organization [employer] Address [address] [facility] [address] [place] [address] Care Team Providers Care Cmm Inspector Name Role Phone Name, Mark QUINTANA Primary Care Provider [phone] Encounter Details Date Type Department Care Team ([facility] st Contact Info) Description 05/08/2025 Orders Only [facility] MEDICINE [address] [place], [place] [phone] Hugo Epps MD [address] [place] [address] Psoriasis vulgaris (Primary Dx) Social History Tobacco Use Types Packs/Day Years Used Date Smoking Tobacco: Never Smokeless Tobacco: Never Alcohol Use Standard Drinks/Week Comments Never 0 (1 standard drink = 0.6 oz pur e alcohol) Depression Answer Date Recorded Patient Health Questionnaire-9 Score 23 03/17/2025 Patient Health Questionnaire-9 Score 23 03/17/2025 Last PHQ-9: Questionnaire Data Not on file 0 03/17/2025 Housing Stability Answer Date Recorded What is your housing situation today? I have soila esparza 03/17/[address] you li ve. Do you have problems with any of the following? None of the above 03/17/2025 Food Insecurity Answer Date Recorded Within the past 12 months, y ou worried that your food would run out before you got money to buy more: Sometimes True 2024 Within the past 12 months,th e food you bought just didn't last and you didn't have enough money to get more: Sometimes True 03/17/2025 Transportation Answer Date Recorded In the past 12 months, has l ack of transportation kept you from medical appts, meetings, work or from getting things needed for daily living? No 03/17/2025 Utilities Answer Date Recorded In the past 12 months, has t he electric, gas, oil or water company threatened to shut off services in your home? No 03/17/2025 Depression Answer Date Recorded Patient Health Questionnaire-2 Score 6 03/17/2025 Comments No Sex and Gender Information Value Date Recorded Sex Assigned at Female 07/24/2022 10:29 AM EDT Legal Sex Female 10:29 AM EDT Gender Identity Female 07/24/2022 10:29 AM EDT Sexual Orientation Don't know 07/24/2022 10 :29 AM EDT documented as of this encounter Progress Notes * Hugo Epps MD - 05/08/2025 10:51 AM EDT Ordered quantiferon test documented in this encounter Plan of Treatment Upcoming Encounters Date Type Department Care Team (Late st Contact Info) Description 07/07/2025 9:15 AM EDT Office Visit [facility] MEDICINE [address] [place] [address] Name, MD Mark [address] [place] [address] 07/22/2025 2:30 PM EDT Office Visit [facility] OPTOMETRY [address] [place] [address] Sanford, Odalys, OD [address] [place] [address] Scheduled Orders Name Type Priority Associated Diagnoses Orde r Schedule QuantiFERON TB Gold Lab Routine Psoriasis vulgaris Expected: 05/08/2025 (Approximate), Expires: 05/08/2026 documented as of this encounter Goals Goal Patient Goal Type Associated Problems Recent Progress Patient-Stated? Author Hemoglobin A1c < 7 Result Component 7(02/17/2025 11:46 AM EDT) No Veronica Mclaughlin, PharmD Record your blood sugar as directed Result Component No Veronica Mclaughlin, Raul Note: Patient will use CGM, ensuring sensor is scanned at least once every 8 hours to capture 24H data. Check BG manually, as required. documented as of this encounter Visit Diagnoses Diagnosis Psoriasis vulgaris- Primary Other psoriasis documented in this encounter Additional Health Concerns Assessment Noted Time PHQ-9 Depression Total Score: 23 025 11:54 AM EDT documented as of this encounter Care Teams Cmm Inspector Relationship Specialty Start Date End Date Name, MD Mark [address] [place] [address] PCP - General Family Medicine 01/18/16 documented as of this encounter
== END 2025-05-11 13:18 | disposition home or self-care (01) ==
LOC: HO.HHCL 13:17
PROVIDERS: PCP Internal Medicine Geriatric Medicine; Visit Provider Internal Medicine Geriatric Medicine
DX: Z13.89 Encounter for screening for other disorder (principal)

== ENCOUNTER 2025-05-14 11:51 | Outpatient (REF) | payer MEDICAID, SELFPAY ==
[2025-05-14 13:59] LABS: Microalbum/Creatinine Ratio Ur 8.0 ug/mg cr (<30)
== END 2025-05-14 11:52 | disposition home or self-care (01) ==
LOC: HO.HHCL 11:51
PROVIDERS: PCP Internal Medicine Geriatric Medicine; Visit Provider Internal Medicine Geriatric Medicine
DX: E11.65 Type 2 diabetes mellitus with hyperglycemia (principal); Z79.4 Long term (current) use of insulin
CPT/HCPCS: 82043; 82570

== ENCOUNTER 2025-07-07 10:11 | Outpatient (REF) | payer MEDICAID, SELFPAY ==
--- OUTSIDE RECORDS SUMMARY | 2025-07-07 09:15 | XMS_ITS | Encounter Summary ---
Author Organization [employer] Address [address] [place] [address] [address] [place] [address] Care Team Providers Care Hog Handler Name Role Phone Mark Juan MD Primary Care Provider Reason for Referral * Imaging (Routine) - Closed Specialty Diagnoses / Procedures Referred By Contac t Referred To Contact Radiology Diagnoses Breast cancer screening by mammogram Procedures BI Mammogram Screening Tomosynthesis Bilateral Mark Juan MD [address] [place] [phone] Phone: tel: fax: [facility] Referral ID Status Reason Start Date Expiration Date Visits Re quested Visits Authorized [id number] Closed 07/07/2025 07/07/2026 1 1 Reason for Visit * Reason Comments Diabetes Encounter Details Date Type Department Care Team (Late st Contact Info) Description 07/07/2025 9:15 AM EDT Office Visit [facility] [address] [place] [address] [phone] Mark Juan MD [address] [place] [address] [phone] Type 2 diabetes mellitus with hyperglycemia, with long-term current use of insulin (HCC) (Primary Dx); Tachycardia; Generalized anxiety disorder; Hypokalemia; Breast cancer screening by mammogram; Encounter for immunization Social History Tobacco Use Types Packs/Day Years Used Date Smoking Tobacco: Never Smokeless Tobacco: Never Tobacco Cessation:Counseling Given: Not Answered Alcohol Use Standard Drinks/Week Comments Never 0 (1 standard drink = 0.6 oz pur e alcohol) Depression Answer Date Recorded Patient Health Questionnaire-9 Score 03/17/2025 Patient Health Questionnaire-9 Score 23 03/17/2025 [...] AM EDT documented as of this encounter Last Filed Vital Signs Vital Sign Reading Time Taken Comments Blood Pressure 114/80 07/07/2025 9:26 AM EDT Pulse 115 07/07/2025 9:26 AM EDT Temperature 36.1 C (97 F) 07/07/2025 9:26 AM EDT Respiratory Rate 14 07/07/2025 9:26 AM EDT Oxygen Saturation 97% 07/07/2025 9:26 AM EDT Inhaled Oxygen Concentration - - Weight 99 kg (218 lb 3.2 oz) 07/07/2025 9:26 AM EDT Height 160 cm (5' 3 ) 07/07/2025 9:26 AM EDT Body Mass Index 38.65 07/07/2025 9:26 AM EDT documented in this encounter Progress Notes * Mark Juan MD - 07/07/2025 9:15 AM EDT Subjective Patient ID: Ashley Maloney is a 60 y.o. female who presents for Diabetes. - Morning blood glucose consistently around 200 mg/dL, average glucose over last 3 months 184 mg/dL - Reports eating sweet foods, specifically panqu?? with syrup, recognized as causing high glucose; stopped consuming for past 5 days, but glucose remains elevated - No episodes of hypoglycemia on the CGM - Experiences palpitations and episodes of rapid heartbeat, sometimes associated with anxiety; describes feeling heart wanted to jump out of chest - History of anxiety, uses clonazepam intermittently for symptoms - Reports great improvement in psoriasis with methotrexate treatment - Family history of breast cancer; expresses trauma and concern due to multiple cousins affected - Has not completed mammogram this year due to emotional distress related to family history This note was drafted using Ambient (AI) technology. The patient/patient's guardian has been informed and has consented to the use of this technology: Yes Review of Systems Constitutional: Negative for chills and fever. HENT: Negative for sore throat. Respiratory: Negative for cough, shortness of breath and wheezing. Cardiovascular: Positive for palpitations. Negative for chest pain and leg swelling. Gastrointestinal: Negative for abdominal pain. Musculoskeletal: Occasional right groin and thigh pain Objective Vitals: 07/07/25 0926 BP: 114/80 BP Location: Left arm Patient Position: Sitting BP Cuff Size: Large adult Pulse: (!) 115 Resp: 14 Temp: 97 ??F (36.1 ??C) TempSrc: Temporal SpO2: 97% Weight: 218 lb 3.2 oz (99 kg) Height: 5' 3 (1.6 m) Physical Exam Constitutional: Appearance: Normal appearance. Cardiovascular: Rate and Rhythm: Regular rhythm. Tachycardia present. Pulses: Dorsalis pedis pulses are 2+ on the right side and 2+ on the left side. Posterior tibial pulses are 2+ on the right side and 2+ on the left side. Heart sounds: No murmur heard. No gallop. Pulmonary: Effort: Pulmonary effort is normal. No respiratory distress. Breath sounds: Normal breath sounds. No wheezing. Musculoskeletal: Right lower leg: No edema. Left lower leg: No edema. Right foot: Normal range of motion. Left foot: Normal range of motion. Feet: Right foot: Protective Sensation: 5 sites tested. 3 sites sensed. Skin integrity: Skin integrity normal. Left foot: Protective Sensation: 5 sites tested. 3 sites sensed. Skin integrity: Skin integrity normal. Neurological: General: No focal deficit present. Mental Status: She is alert. Motor: No weakness. Assessment/Plan Diagnoses and all orders for this visit: Type 2 diabetes mellitus with hyperglycemia, with long-term current use of insulin ([facility]) Comments: - Increased daily insulin dose from 72 units to 80 units. Advised to avoid consumption of sweet foods, specifically cake with syrup. If glycemic control improves after dietary changes, reduce insulindose back to 72 units next week. Continue monitoring blood glucose with her CGM Orders: - POCT Glucose - POCT Hgb A1c - insulin glargine (Toujeo [place] SoloStar) 300 UNIT/ML injection; Inject 80 units subQ once daily as directed.Inject 72 units subQ once daily as directed. Tachycardia Comments: - Generalized anxiety disorder contributing to episodes of tachycardia. - Prescribed clonazepam for use during episodes of significant anxiety. Check blood work listed below and keep follow up appointment with cardi Orders: - clonazePAM (KlonoPIN) 0.5 MG tablet; Take 1 tablet (0.5 mg) by mouth if needed in the morning andat bedtime for anxiety for up to 7 days. - CBC auto differential; Future - TSH W/Reflex to FT4; Future Generalized anxiety disorder Hypokalemia Comments: K was a little low on the last blood work and she is on hydrochlorothiazide. We discussed importance of eating potassium rich foods. Recheck BMP prior to next visit. Orders: - Basic Metabolic Panel; Future Breast cancer screening by mammogram Comments: I will send the patient again for screening mammogram. Orders: - BI Mammogram Screening Tomosynthesis Bilateral; Future Encounter for immunization Comments: Flu vaccine today. She refuses COVID-vaccine. Orders: - FLU VACCINE TRIVALENT [id number] (Fluarix) 19 yrs + Future Appointments Date Time Provider Department Center 07/22/2025 2:30 PM Odalys Christina OD [facility] documented in this encounter Plan of Treatment Upcoming Encounters Date Type Department Care Team (Late st Contact Info) Description 07/22/2025 2:30 PM EDT Office Visit [facility] [address] [place] [address] SanfordOdalys lr, OD [address] [place] [address] Scheduled Orders Name Type Priority Associated Diagnoses Orde r Schedule Basic Metabolic Panel Lab Routine Hypokalemia Expected: 07/07/2025 (Approximate), Expires: 07/07/2026 CBC auto differential Lab Routine Tachycardia Expected: 07/07/2025 (Approximate), Expires: 07/07/2026 TSH W/Reflex to FT4 Lab Routine Tachycardia Expected: 07/07/2025 (Approximate), Expires: 07/07/2026 BI Mammogram Screening Tomosynthesis Bilateral Imaging Routine Breast cancer screening by mammogram Expected: 07/07/2025, Expires: 09/06/2026 documented as of this encounter Goals Goal Patient Goal Type Associated Problems Recent Progress Patient-Stated? Author Hemoglobin A1c < 7 Result Component 8(07/07/2025 9:27 AM EDT) No Veronica Mclaughlin, PharmGene Record your blood sugar as directed Result Component No Veronica Mlcaughlin, PharmD Note: Patient will use CGM, ensuring sensor is scanned at least once every 8 hours to capture 24H data. Check BG manually, as required. documented as of this encounter Procedures Procedure Name Priority Date/Time Associated Diagnosis Comments POCT GLYCATED HEMOGLOBIN, TOTAL Routine 07/07/2025 9:27 AM EDT Type 2 diabetes mellitus with hyperglycemia, with long-term current use of insulin (HCC) POCT GLUCOSE Routine 07/07/2025 9:27 AM EDT Type 2 diabetes mellitus with hyperglycemia, with long-term current use of insulin (HCC) documented in this encounter Results * (ABNORMAL) POCT Hgb A1c (07/07/2025 9:27 AM EDT) Hemoglobin A1C 8.0(A) 4.0 - 5.7 % QC Media Lot # [id number] Lot# Expiration Date 41,627 Blood 07/07/2025 9:27 AM EDT Mark Juan MD POINT OF CARE TEST ENTER/EDIT OR DERABLES Final Result * (ABNORMAL) POCT Glucose (07/07/2025 9:27 AM EDT) Glucose Blood, POC 214(A) 60 - 200 mg/dL QC Media Lot # [id number] Lot# Expiration Date 31,126 Blood Capillary blood specimen / Unknown 07/07/2025 9:27 AM EDT Mark Juan MD POINT OF CARE TEST ENTER/EDIT OR DERABLES Final Result documented in this encounter Visit Diagnoses Diagnosis Type 2 diabetes mellitus with hyperglycemia, with long-term current use of insulin (HCC)- Primary Tachycardia Unspecified tachycardia Generalized anxiety disorder Hypokalemia Hypopotassemia Breast cancer screening by mammogram Encounter for immunization documented in this encounter Additional Health Concerns Assessment Noted Time PHQ-9 Depression Total Score: 23 025 11:54 AM EDT documented as of this encounter Care Teams Hog Handler Relationship Specialty Start Date End Date Name, MD [address] [place] [address] PCP - General Family Medicine 01/18/16 documented as of this encounter
[2025-07-07 11:35] LABS: MANUAL DIFF FLAG NO
--- OUTSIDE RECORDS SUMMARY | 2025-07-07 11:48 | XMS_ITS | Clinical Summary ---
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 albuterol 108 (90 Base) MCG/ACT inhaler Inhale 2 puffs by mouth every 4 to 6 hours as needed Active Blood Pressure Monitor deviceIndicatio ns:Essential hypertension Use to check blood pressure twice daily 1 each 10/30/19 24 Active Pentips Generic Pen Biddle 32G X 4 MM miscIndications :Diabetes mellitus without complication (HCC) USE DIRECTED FOUR TIMES DAILY 100 each 11 09/16/20 24 Active losartan (Cozaar) 25 MG tabletIndicatio ns:Essential hypertension TAKE 1 TABLET BY MOUTH EVERY MORNING 90 tablet 3 09/19/20 24 Active montelukast (Singulair) 10 MG tablet TAKE 1 TABLET BY MOUTH AT BEDTIME 90 tablet 3 09/19/20 24 Active nystatin (Mycostatin) 393236 UNIT/GM powder Apply topically 2 times daily. 60 g 11/04/19 25 026 Active pravastatin (Pravachol) 20 MG tabletIndicatio ns:Type 2 diabetes mellitus with hyperglycemia, with long-term current use of insulin (HCC) Take 1 tablet (20 mg) by mouth Once per day. 30 tablet 11 11/11/19 25 026 Active TRUEplus Lancets 33G miscIndications :Type 2 diabetes mellitus with hyperglycemia, with long-term current use of insulin (HCC) USE DIRECTED TO TEST BLOOD SUGAR FOUR TIMES DAILY 100 each 11/17/19 25 Active Continuous Glucose Welfare Aide (FreeStyle Gera 3 Gilbert) device 1 each Once per day. Use as directed for CGM 1 each 12/04/19 25 Active Continuous Glucose Sensor (FreeStyle Gera 3 Plus Sensor) misc Apply 1 every 15 days as directed for CGM 2 each 12/04/19 25 Active glucose blood (FreeStyle Precision Quan Test) test stripIndication s:Type 2 diabetes mellitus with hyperglycemia, with long-term current use of insulin ([facility]) Use to test blood sugar up to 4 times daily, as directed 100 each 12/04/19 25 Active timolol (Timoptic) 0.5 % ophthalmic solution Administer 1 drop into both eyes in the morning. 5 mL 12/20/19 25 026 Active insulin lispro (HumaLOG) 100 UNIT/ML injectionIndica tions:Type 2 diabetes mellitus with hyperglycemia, with long-term current use of insulin ([facility]) Inject with 24 units subQ three times daily w/ meals, as directed. 30 mL 02/18/20 25 Active SITagliptin-met FORMIN ER (Janumet XR) 50-500 MG per 24 hr tabletIndicatio ns:Type 2 diabetes mellitus with hyperglycemia, with long-term current use of insulin ([facility]) Take 1 tablet by mouth with breakfast and with evening meal. 60 tablet 02/18/20 25 026 Active hydroCHLOROthia zide (HYDRODiuril) 25 MG tablet TAKE 1 TABLET BY MOUTH EVERY MORNING 90 tablet 1 02/25/20 25 Active Alcohol Swabs (Alcohol Prep) 70 % padsIndications :Diabetes mellitus without complication (HCC) USE DIRECTED FOUR TIMES DAILY AND EVERY 2 WEEKS FOR sensors 100 each 04/02/20 25 Active Multiple Vitamin (Multivitamin) tablet TAKE 1 TABLET BY MOUTH EVERY MORNING 90 tablet 2 04/15/20 25 Active cholecalciferol VITAMIN D (Vitamin D-3) 50 MCG (2000 UT) tablet TAKE 1 TABLET BY MOUTH EVERY MORNING 90 tablet 2 04/15/20 25 Active folic acid (Folvite) 1 MG tabletIndicatio ns:Psoriasis vulgaris,Invers e psoriasis Take 1 tablet (1 mg) by mouth Once per day. 30 tablet 11 05/01/20 25 026 Active betamethasone, augmented, (Diprolene) 0.05 % ointmentIndicat ions:Psoriasis vulgaris,Invers e psoriasis Apply topically 2 times daily. 15 g 05/01/20 25 Active Fluocinolone Acetonide Scalp (Rhodhiss-Smoothe/ FS Scalp) 0.01 % oilIndications: Psoriasis vulgaris,Invers e psoriasis Apply at night 3 times weekly cover with head cover 118.28 mL 1 05/01/20 25 Active amitriptyline (Elavil) 50 MG tablet TAKE 1 TABLET BY MOUTH AT BEDTIME 30 tablet 3 05/11/20 25 Active metoprolol tartrate (Lopressor) 25 MG tablet TAKE 1 TABLET BY MOUTH TWICE DAILY IN THE MORNING AND IN THE EVENING 180 tablet 2 05/12/20 25 Active clotrimazole-be tamethasone (Lotrisone) creamIndication s:Tinea corporis APPLY TOPICALLY TO AFFECTED AREA(S) TWICE DAILY FOR 28 DAYS 45 g 2 05/19/20 25 Active methotrexate 2.5 MG tabletIndicatio ns:Psoriasis vulgaris,Invers e psoriasis TAKE 6 TABLETS BY MOUTH ONCE WEEKLY SUNDAY MORNING DIRECTED 24 tablet 2 07/03/20 25 Active QUEtiapine (SEROquel) 200 MG tabletIndicatio ns:Bipolar disorder in remission (CMS/HCC) TAKE 2 TABLETS BY MOUTH EVERY DAY AT BEDTIME 60 tablet 5 07/03/20 25 Active insulin glargine (Toujeo Max SoloStar) 300 UNIT/ML injectionIndica tions:Type 2 diabetes mellitus with hyperglycemia, with long-term current use of insulin (HCC) Inject 80 units subQ once daily as directed.Inje ct 72 units subQ once daily as directed. 12 mL 5 07/07/20 25 Active clonazePAM (KlonoPIN) 0.5 MG tabletIndicatio ns:Tachycardia Take 1 tablet (0.5 mg) by mouth if needed in the morning and at bedtime for anxiety for up to 7 days. 14 tablet 07/07/20 25 025 Active QUEtiapine (SEROquel) 200 MG tabletIndicatio ns:Bipolar disorder in remission (CMS/HCC) TAKE 2 TABLETS BY MOUTH EVERY DAY AT BEDTIME 60 tablet 5 01/17/20 25 025 Discontinued insulin glargine (Toujeo Max SoloStar) 300 UNIT/ML injectionIndica tions:Type 2 diabetes mellitus with hyperglycemia, with long-term current use of insulin ([facility]) Inject 72 units subQ once daily as directed. 12 mL 5 02/18/20 25 025 Discontinued clonazePAM (KlonoPIN) 0.5 MG tablet Take 1 tablet (0.5 mg) by mouth if needed in the morning and at bedtime for anxiety for up to 7 days. 14 tablet 03/17/20 25 025 Discontinued(R eorder (will not trigger notification to Pharmacy)) methotrexate 2.5 MG tabletIndicatio ns:Psoriasis vulgaris,Invers e psoriasis Take 6 tablets (15 mg total) by mouth 1 (one) time per week. Follow directions carefully, and ask to explain any part you do not understand. Take exactly as directed. 24 tablet 2 05/01/20 25 025 Discontinued Active Problems Problem Noted Date Diagnosed Date Psoriasis 08/19/2024 Assessment & Plan (08/19/2024 9:15 AM EST): Images from the original note were not included. Photo obtained after consent. Pt with c/o worsening pruritic plaques on her back mainly, new lesions now on her elbows x 1-2 months. No other associated symptoms. Etiology ? Psoriasis ? Eczema ? Patient has been using Clobetasol cream , helps with the itching but not with the plaques. Plan; Switch to Clobetasol ointment Dermatology referral Fissure in ano 11/20/2023 Severe obesity (BMI 35.0-39.9) with comorbidity ([facility]/HCC) 11/20/2023 Type 2 diabetes mellitus 11/20/2023 Family history of colon cancer 07/18/2023 Glaucoma 04/10/2023 Seasonal allergic reaction 09/09/2022 Obesity (BMI 35.0-39.9 without comorbidity) 09/25 Steatosis of liver 10/16/2017 Migraine with aura 05/23/2017 Schizophrenia 01/19/2017 Obstructive sleep apnea syndrome 11/17/2016 Bipolar disorder in remission 06/14/2016 Mild intermittent asthma without complication Essential hypertension 01/18/2016 Resolved Problems Problem Noted Date Diagnosed Date Resolved Date Left flank pain 02/05/2024 03/17/2025 Assessment & Plan (02/05/2024 10:39 AM EDT): -patient reports symptom resolution following hospitalization and treatment -advised increased fluid intake and continued self monitoring -follow-up with cardiology as recommended during hospitalization for incidental finding for further work-up on Echo findings -follow-up with pcp as needed Depression 11/20/2023 03/17/2025 Suicidal ideation 10/10/2023 03/17/2025 Streptococcal sore throat 04/10/2023 Tachycardia 04/10/2023 03/17/2025 LFT elevation 08/21/2017 03/17/2025 Drug-induced dystonia 12/08/20162024 Knee pain 11/17/2016 03/17/2025 Dizziness 07/21/2016 03/17/2025 Snoring 06/14/2016 03/17/2025 Type 2 diabetes mellitus with hyperglycemia 01/18/2016 03/17/2025 Encounters Date Type Department Care Team Description 07/07/2025 9:15 AM EDT Office Visit [facility] [address] [place] [phone] Mark Juan MD Type 2 diabetes mellitus with hyperglycemia, with long-term current use of insulin ([facility]) (Primary Dx); Tachycardia; Generalized anxiety disorder; Hypokalemia; Breast cancer screening by mammogram; Encounter for immunization 07/07/2025 Travel 07/06/2025 Telephone [facility] [address] [place] [address] Mark Juan MD Chart Prep 07/03/2025 Refill [facility] [address] [place], [place] [phone] Mark Juan MD Bipolar disorder in remission ([facility]) 07/01/2025 Refill [facility] [address] [place] [address] Hugo Epps MD Psoriasis vulgaris; Inverse psoriasis 05/19/2025 Refill [facility] [address] [place] [address] Mark Juan, MD Tinea corporis 05/14/2025 Orders Only [facility] [place] [place] [address] Mark Juan MD 05/12/2025 Refill [facility] [place] [address] NameMark MD 05/10/2025 Refill [facility] [place] [address] NameMark MD 05/08/2025 Orders Only [facility] [place] [address] Hugo Epps MD Psoriasis vulgaris (Primary Dx) 05/04/2025 Telephone [facility] [address] [place], [place] [address] [place] [address] Nida Schmitt, RN Results 05/01/2025 9:30 AM EDT Office Visit [facility] [address] [place] [phone] Hugo Epps MD Psoriasis vulgaris (Primary Dx); Inverse psoriasis 05/01/2025 Travel 04/28/2025 Telephone [facility] [place] [address] Mark Juan MD 04/28/2025 Telephone [facility] [address] [place] [phone] Feli Vu [place] jose recall 04/15/2025 Refill [facility] [place] [address] Name, MD Mark from Last 3 Months Immunizations Immunization Administration Dates Next Due Hep B, adult 08/21/2018,11/16/2017,10/16/2017 Influenza Injectable Quadriv alant Preservative Free IIV4 MDCK 06/29/2023 Influenza injectable quadriv alent IIV4 with preservative 08/21/2018,08/21/2017,06/14/2016 Influenza injectable quadriv alent preservative free 06/16/2022,08/04/2021,06/28/2020,07/07,07/08/2014,06/02/2013,06/27/2012 Influenza, seasonal, injecta ble, preservative free 07/07/2025,08/18/2024,08/14/2015 Pfizer Covid-19 Vaccine 12+ 08/04/2021,,12/03/2020 Pneumococcal Conjugate PCV 20 08/15/2022 Pneumococcal Polysaccharide PPSV23 09/14/2016 Tdap 08/02/2023,03/22/2012 Zoster, Recombinant 02/06/2023,11/29/2022 Family History Medical History Relation Name Comments Breast cancer Cousin 50s, paternal cousin Breast cancer Father's Sister Breast cancer Paternal Grandmother Relation Name Status Comments Cousin Alive Father's Sister Paternal Grandmother Social History Tobacco Use Types Packs/Day Years [...] is your housing situation today? I have soiladejon esparza 03/17/[address] you [...] Don't know 07/24/2022 10 :29 AM EDT Last Filed Vital Signs Vital Sign Reading [...] Mass Index 38.65 07/07/2025 9:26 AM EDT Plan of Treatment Upcoming Encounters Date Type Department Care Team (Late st Contact Info) Description 07/22/2025 2:30 PM EDT Office Visit [facility] [address] [place] [address] [place], [place]ys, OD [address] [place] [address] Health Maintenance Due Date Last Done Comments CT Colonography 1965 Colonoscopy 1965 Colorectal Cancer Screening 1965 FIT DNA/Cologuard 1965 FIT 1965 FOBT 1965 Sigmoidoscopy 1965 Hepatitis A Vaccines (1 of 2 - Risk 2-dose series) 1984 Mammogram 10/25/2023 10/25/2021 SDOH Screening 11/15/2024 11/15/2023 COVID-19 Vaccine ( season) 2025 08/04/2021, 12/24/2020, 12/03/2020 RSV Patients and Patients Aged 60 years or older (1 - Risk 60-74 years 1-dose series) 2025 Alcohol/Substance Use Screening 08/19/2025 08/19/2024 Depression Monitoring 09/16/2025 03/17/2025, 025 Diabetes: Hemoglobin A1C 10/07/2025 025, 02/17/2025, 11/11/2024, Additional history exists Lipid Panel 02/17/2026 02/17/2025, 07/26, 02/28/2023, Additional history exists Disability Screening 03/17/2026 03/17/2025 Diabetes: Urine Protein Screening 05/14/2026 05/14/2025, 05/01/2025, 01/19/2022 Diabetes: Foot Exam 07/07/2026 07/07/2025, 07/07/2025, 07/07/2025, Additional history exists Tobacco Screening 07/07/2026 07/07/2025 Eye Exam 02/02/2027 02/02/2025, 06/25, 07/21/2024, Additional history exists Cervical Cancer Screening 09/27/2028 HPV/Cotest 09/27/2028 09/27/2023, 08/21/2018 Pap Smear 09/27/2028 09/27/2023 DTaP/Tdap/Td Vaccines (3 - Td or Tdap) 08/02/2033 08/02/2023, 03/22/2012 Hepatitis B Vaccines Completed 08/21/2018, 11/16/2017, 10/16/2017 Pneumococcal Vaccine: 50+ Years Completed 08/15/2022, 09/14/2016 Zoster Vaccines Completed 02/06/2023, 11/29/2022 HIV Screening Completed 05/01/2025 Hepatitis C Screening Completed 05/01/2025 Influenza Vaccine Completed 07/07/2025, , 06/29/2023, Additional history exists HIB Vaccines Aged Out No longer eligi ble based on patient's age to complete this topic HPV Vaccines Aged Out No longer eligi ble based on patient's age to complete this topic IPV Vaccines Aged Out No longer eligi ble based on patient's age to complete this topic Meningococcal B Vaccine Aged Out No l onger eligible based on patient's age to complete this topic Meningococcal Vaccine Aged Out No chasity lidia eligible based on patient's age to complete this topic RSV under 20 months Aged Out No longe r eligible based on patient's age to complete this topic Rotavirus Vaccines Aged Out No longer eligible based on patient's age to complete this topic Goals Goal Patient Goal Type Associated Problems Recent Progress Patient-Stated? Author Hemoglobin A1c < 7 Result Component 8(07/07/2025 9:27 AM EDT) No Veronica Mclaughlin, Raul Record your blood sugar as directed Result Component No Veronica Mclaughlin PharmD Note: Patient will use CGM, ensuring sensor is scanned at least once every 8 hours to capture 24H data. Check BG manually, as required. Procedures Procedure Name Priority Date/Time Associated Diagnosis Comments POCT GLYCATED HEMOGLOBIN, TOTAL Routine 07/07/2025 9:27 AM EDT Type 2 diabetes mellitus with hyperglycemia, with long-term current use of insulin ([facility]) POCT GLUCOSE Routine 07/07/2025 9:27 AM EDT Type 2 diabetes mellitus with hyperglycemia, with long-term current use of insulin ([facility]) ALBUMIN, RANDOM URINE W/CREATININE Routine 05/14/2025 11:57 AM EDT COMPREHENSIVE METABOLIC PANEL Routine 05/01/2025 10:02 AM EDT Psoriasis vulgaris Inverse psoriasis CBC WITH AUTO DIFFERENTIAL Routine 05/01/2025 10:02 AM EDT Psoriasis vulgaris Inverse psoriasis HEPATITIS PANEL, GENERAL Routine 05/01/2025 10:02 AM EDT Psoriasis vulgaris Inverse psoriasis HIV 1/2 ANTIGEN/ANTIBODY, FOURTH GENERATION W/RFL Routine 05/01/2025 10:02 AM EDT Psoriasis vulgaris Inverse psoriasis ALBUMIN, RANDOM URINE W/CREATININE Routine 05/01/2025 10:02 AM EDT Type 2 diabetes mellitus with hyperglycemia, with long-term current use of insulin ([facility]) LIPID PANEL WITH REFLEX TO DIRECT LDL Routine 02/17/2025 11:39 AM EDT HPV MRNA E6/E7 REFLEX TO HPV 16, 18/45 Routine 09/27/2023 9:28 AM EST PAP SMEAR Routine 09/27/2023 9:28 AM EST Cervical cancer screening BI MAMMOGRAM SCREENING BILATERAL Routine 10/25/2021 10:01 AM EST from Last 3 Months or Most Recently Relevant to Health Maintenance Results * (ABNORMAL) POCT Hgb A1c (07/07/2025 9:27 AM EDT) Hemoglobin A1C 8.0(A) 4.0 - 5.7 % QC Media Lot # [id number] Lot# Expiration Date [id number] Blood 07/07/2025 9:27 AM EDT us Mark Juan MD POINT OF CARE TEST ENTER/EDIT OR DERABLES Final Result * (ABNORMAL) POCT Glucose (07/07/2025 9:27 AM EDT) Glucose Blood, POC 214(A) 60 - 200 mg/dL QC Media Lot # [id number] Lot# Expiration Date 31,126 Blood Capillary blood specimen / Unknown 07/07/2025 9:27 AM EDT Mark Juan MD POINT OF CARE TEST ENTER/EDIT OR DERABLES Final Result * Albumin, Random Urine W/Creatinine (05/14/2025 11:57 AM EDT) Only the most recent of2 resultswithin the time period is included. Creatinine, Urine 321.28 mg/dL [facility] Microalbumin Urine 26.0 mg/L [facility] Microalbum Creatinine Ratio Ur 8.0 <30 ug/mg cr [facility] Comment:Albumin/Creatinine R atio Reference Ranges: Normal: < 30 ug/mg creatinine Microalbuminuria: 30 - 300 ug/mg creatinineClinical Albuminuria: > 300 ug/mg creatinine 05/14/2025 11:5 7 AM EDT 05/14/2025 1:16 PM EDT Mark Juan MD LAB URINE ORDERABLES Final Resul t Performing Organization Address [facility] Co de Phone Number [facility] [address] [place] [phone] * Hepatitis A,B,C Profile (05/01/2025 10:02 AM EDT) Hepatitis A IgM Nonreactive Nonreactive [facility] Comment:IgM antibodies to KINCAID V not detected; does not exclude earlyacute or recovered HAV infection. ~Hepatitis B Surface Antibody NONREACTIVE Nonreactive [facility] Comment:Nonreactive: < 8.00 mIU/mL Hepatitis B Core Antibody Nonreactive Nonreactive [facility] Hepatitis C Antibody Nonreactive Nonreactive [facility] Comment:Antibodies to HCV no t detected; does not exclude early acuteHCV infection. Hepatitis B Surface Ag Negative Negative [facility] Blood Venous blood specimen / Unknown 05/01/2025 10:02 AM EDT 05/01/2025 11:36 AM EDT Hugo Epps MD LAB BLOOD ORDERABLES Final Re sult Performing Organization Address [facility] Co de Phone Number [facility] [address] [place] [phone] * CBC auto differential (05/01/2025 10:02 AM EDT) White Blood Count 7.5 4.8 - 10.8 X10*3/uL [facility] Red Blood Count 4.65 4.20 - 5.50 X10*6/uL [facility] Hemoglobin 13.9 12.0 - 16.0 g/dl [facility] Hematocrit 40.8 37.0 - 47.0 % [facility] Mean Corpuscular Volume 87.7 80.0 - 98.0 fL [facility] Mean Corpuscular Hemoglobin 29.9 27.0 - 33.0 pg [facility] Mean Corpuscular HGB Conc 34.1 31.0 - 35.0 g/dl [facility] Red Cell Distribution Width 12.7 11.0 - 16.0 % [facility] Platelet Count 255 160 - 400 X10*3/uL [facility] Mean Platelet Volume 11.7 9.4 - 12.3 fL [facility] Neutrophils Percent Auto 59.6 45 - 73 % [facility] Imm Gran Pct Auto 0.3 0.0 - 0.4 % [facility] Lymphocytes Percent Auto 25.9 20 - 40 % [facility] Monocytes Percent Auto 9.8 2 - 11 % [facility] Eosinophils Percent Auto 3.5 0 - 4 % [facility] Basophils Percent Auto 0.9 0 - 2 % [facility] NRBC Pct Auto 0.0 0.0 - 0.2 /100WBC [facility] Neutrophils Absolute Auto 4.5 2.0 - 8.3 x10*3/uL [facility] Imm Gran Abs Auto 0.02 0.00 - 0.03 X10*3/uL [facility] Lymphocytes Absolute Auto 1.9 1.2 - 4.9 X10*3/uL [facility] Monocytes Absolute Auto 0.7 0.1 - 1.2 X10*3/uL [facility] Eosinophils Absolute Auto 0.3 0.0 - 0.4 X10*3/uL [facility] Basophils Absolute Auto 0.1 0.0 - 0.2 X10*3/uL [facility] NRBC Abs Auto 0.000 0.0 - 0.012 X10*3/uL [facility] Blood Venous blood specimen / Unknown 05/01/2025 10:02 AM EDT 05/01/2025 11:37 AM EDT us Hugo Epps MD LAB BLOOD ORDERABLES Final Re sult [facility] [address] [place] [address] [phone] * HIV-1/2 Antigen and Antibodies, Fourth Generation, with Reflexes (05/01/2025 10:02 AM EDT) [facility] HIV AB/AG Nonreactive Nonreactive [facility] Comment:HIV-1 p24 Ag and/or HIV-1/HIV-2 Ab not detected.A test result that is nonreactive does not exclude thepossibility of exposure to or infection with HIV-1 and/orHIV-2. Nonreactive results in this assay for individualswith prior exposure to HIV-1 and/or HIV-2 may be due toantigen and antibody levels that are below the limit ofdetection of this assay.The NuxeoniiFit HIV Ag/Ab Combo assay result andsupplemental assay results should be interpreted inconjunction with the patient's clinical presentation,history and other laboratory results. If the results areinconsistent with clinical evidence, additional testing issuggested to confirm the result. Blood Venous blood specimen / Unknown 05/01/2025 10:02 AM EDT 05/01/2025 11:36 AM EDT us Hugo Epps MD LAB BLOOD ORDERABLES Final Re sult [facility] [address] [place] [phone] * (ABNORMAL) Comprehensive Metabolic Panel (05/01/2025 10:02 AM EDT) [facility] Sodium 142 135 - 145 mmol/L [facility] Potassium 3.2(L) 3.3 - 5.1 mmol/L [facility] Chloride 100 96 - 108 mmol/L [facility] Carbon Dioxide 34(H) 22 - 29 mmol/L [facility] Anion Gap 11(L) 12 - 20 [facility] Urea Nitrogen (BUN) 9 9 - 16 mg/dL [facility] Creatinine, Serum 0.83 0.5 - 1.4 mg/dL [facility] Estimated Glomerular Filt Rate >60 [facility] Comment:Chronic Kidney Disea se: Estimated GFR < 60 mL/min/1.65x7Zqbhad Kidney Disease: Estimated GFR < 15 mL/min/1.73m2 Glucose 120(H) 60 - 115 mg/dL [facility] Calcium 9.4 8.4 - 10.2 mg/dL [facility] Bilirubin, Total 0.4 0.0 - 1.0 mg/dL [facility] Aspartate Amino Transferase 37(H) 5 - 31 U/L [facility] Alanine Aminotransferase 38(H) 0 - 31 U/L [facility] Total Protein 8.2(H) 6.5 - 8.0 g/dL [facility] Albumin Level 4.7 3.5 - 5.0 g/dL [facility] Alkaline Phosphatase 106 39 - 117 U/L [facility] Blood Venous blood specimen / Unknown 05/01/2025 10:02 AM EDT 05/01/2025 11:37 AM EDT us Hugo Epps MD LAB BLOOD ORDERABLES Final Re sult [facility] [address] [place] [phone] [phone] * Lipid Panel with Reflex to Direct LDL (02/17/2025 11:39 AM EDT) Triglycerides 103 <150 mg/dL [facility] Comment:Desirable Triglyceri de: less than 150 mg/dLBorderline High Triglyceride 150-199 mg/dLHigh Triglyceride: 200-499 mg/dLVery High Triglyceride: greater than or equal to 5OO mg/dL Cholesterol 165 <200 mg/dL [facility] Comment:Desirable Cholestero l: less than 200 mg/dLBorderline High Cholesterol: 200-239 mg/dLHigh Cholesterol: greater than 239 mg/dL LDL Cholesterol Calculated 96 <100 mg/dL [facility] Comment:Desirable LDL: less than 100 mg/dLNear Optimal/Above Optimal LDL: 110- 129 mg/dLBorderline High LDL: 130-159 mg/dLHigh LDL: 160-189 mg/dLVery High LDL: greater than or equal to 190 mg/dL HDL Cholesterol 49 >40 mg/dL [facility] Comment:Desirable HDL: great er than 40 mg/dL Note: This HDL assay may give artificially low results in patients with liver disease. 02/17/2025 11:3 9 AM EDT 02/17/2025 1:22 PM EDT Mark Juan MD LAB BLOOD ORDERABLES Final Resul t Performing Organization Address [facility] Co de Phone Number [facility] [address] [place] [address] [phone] * HPV mRNA E6/E7 w/Reflex to HPV Genotypes 16, 18/45 (09/27/2023 9:28 AM EST) HPV nRNA E6/E7 Not Detected Not Detected [facility] Comment:Methodology: Transcr iption-Mediated AmplificationThis assay detects E6/E7 viral messenger RNA (mRNA) from 14high-risk HPV types (16,18,31,33,35,39,45,51,52,56,58,59,66,68).Cervical sources are required for HPV testing.If a vaginal source from a patient who has had atotal hysterectomy with removal of cervix wassubmitted, please contact the testing laboratoryfor alternative testing options.For additional information, please refer tohttp://education.AdelaVoice/faq/ERL773l5(This link if provided for information/educational purposes only.)THIS TEST WAS PERFORMED AT:[facility] [place] [id number] QUEZADA MD HPV mRNA E6/E7 [facility] HPV 16 RNA [facility] HPV 18/45 RNA [facility] 09/27/2023 9:28 AM EST 09/28/2023 9:30 AM EST Latosha Dowling CNM LAB CYTOLOGY ORDERABLES F inal Result Performing Organization Address City/[facility]/ZIP Co de Phone Number [facility] [address] [place] [address] [phone] * Pap Smear (09/27/2023 9:28 AM EST) Swab Cervix uteri structure / Unknown 09/27/2023 9:28 AM EST 09/28/2023 9:30 AM EST Narrative [facility] - 10/02/2023 1:24 PM EST ----- ------- Name: Ashley Osborne Age/Sex: 58/F : 1965 Unit#: [id number] Attend Dr: Re09/27/23 Status: PRE REF Location: .LN Disch: ----- ------- SPEC : [id number] RECD: 09/28/23 STATUS: ANALIA TESFAYE NUM: [id number] NAT: 09/27/[address]: LATOSHA DOWLING CNM ENTERED: 09/28/23-1036 SP TYPE: Pap Smr OT DR: ORDERED: Pap Smear Interpretation Satisfactory for evaluation. Fungal organisms consistent with Darcie species. Negative for intraepithelial lesion or malignancy. HPV mRNA E6/E7: NOT DETECTED This assay detects E6/E7 viral messenger RNA (mRNA) from 14 high-risk HPV types (16, 18, 31, 33, 35, 39, 45, 51, 52, 56, 58, 59, 66, 68) HPV testing performed by [email or web address], [place], [place]. See reference laboratory portion of the EMR for entire report. Clinical Information LMP: Unknown date Previous PAP test: Unknown date/findings Other history: Abnormal bleeding (history of PMB) Material Received ThinPrep-Cervical ----- ------- Signed (signature on file) DA Wilson (ASCP) 10/02/23 1324 ----- ------- END OF REPORT us Latosha Dowling [facility] LAB CYTOLOGY ORDERABLES F inal Result [facility] [address] [place] [phone] * Req: Mammogram (Screening); Bilateral (10/25/2021 10:01 AM EST) Anatomical Region Laterality Modality Breast Bilateral Mammography 10/25/2021 10:0 1 AM EST Narrative 10/25/2021 10:02 AM EST Refer to the Notes tab for result details [facility] Procedure: Req: Mammogram (Screening); Bilateral Procedure Note Provider, MD Miguel Angel - 12/17/2022 Refer to the Notes tab for result details [facility] Procedure: Req: Mammogram (Screening); Bilateral Mark Name IMG BI PROCEDURES Final Result from Last 3 Months or Most Recently Relevant to Health Maintenance Insurance [facility] C3 Care Teams Hydraulic Rockbreaker Operator Relationship Specialty Start Date End Date Name, MD Mark [address] [place] [address] PCP - General Family Medicine 01/18/16
--- OUTSIDE RECORDS SUMMARY | 2025-07-07 11:48 | XMS_ITS | Encounter Summary ---
Author Organization [employer] Address [address] [place] [address] 7 [place] [address] Care Team Providers Care Panel Saw Operator Name Role Phone Name, Mark QUINTANA Primary Care Provider [phone] Reason for Visit * Reason Onset Date Comments Chart Prep 07/06/2025 Encounter Details Date Type Department Care Team ([facility] st Contact Info) Description 07/06/2025 Telephone [facility] MEDICINE [address] [place], [place] [phone] Name, MD Mark [address] [place] [address] Chart Prep Social History Tobacco Use Types Packs/Day Years [...] AM EDT documented as of this encounter Miscellaneous Notes * Telephone Encounter - Daphnie De La Torre [place] - 07/06/2025 2:52 PM EDT Chart Prep Labs: not done from 05/08/25 Images: not done from 03/17/25 Referrals: Cardiology - Patient kept appointment notes in chart. Radiology - Incomplete. Ophthalmology - Pt kept appointment. Notes requested. Vaccines due: Covid, Flu, Hep A, and RSV Screenings: colonoscopy and mammogram Overdue care gaps: A1c, Glucose, Oral health screening, and Tobacco documented in this encounter Plan of Treatment Upcoming Encounters Date Type Department Care Team (Late st Contact Info) Description 07/22/2025 2:30 PM EDT Office Visit [facility] OPTOMETRY [address] [place] [address] Odalys Christina, OD [address] [facility] [place] [address] documented as of this encounter Goals Goal Patient Goal Type Associated Problems Recent Progress Patient-Stated? Author Hemoglobin A1c < 7 Result Component 8(07/07/2025 9:27 AM EDT) No Puia, Veronica, PharmD Record your blood sugar as directed Result Component No Puia, Veronica, PharmD Note: Patient will use CGM, ensuring sensor is scanned at least once every 8 hours to capture 24H data. Check BG manually, as required. documented as of this encounter Visit Diagnoses Not on filedocumented in this encounter Additional Health Concerns Assessment Noted Time PHQ-9 Depression Total Score: 23 025 11:54 AM EDT documented as of this encounter Care Teams Panel Saw Operator Relationship Specialty Start Date End Date Name, MD Mark [address] [place] [address] PCP - General Family Medicine 01/18/16 documented as of this encounter
--- OUTSIDE RECORDS SUMMARY | 2025-07-07 11:48 | XMS_ITS | Encounter Summary ---
Author Organization [employer] Address [address] [place] [address] 7 [place] [address] Care Team Providers Care Angle Shearer Name Role Phone Name, Mark QUINTANA Primary Care Provider [phone] Veronica Mclaughlin PharmD Unavailable [phone] Reason for Visit * Reason Comments Med Refill Encounter Details Date Type Department Care Team ([facility] st Contact Info) Description 11/14/2023 Refill [facility] MEDICINE [address] [place], [place] [phone] Name, MD Mark [address] [place], [place] [phone] Social History Tobacco Use Types Packs/Day Years [...] Description 07/22/2025 2:30 PM EDT Office Visit [facility] OPTOMETRY [address] [place], [place] [phone] Odalys Christina, OD 230 [place] [address] documented as of this encounter Goals Goal Patient Goal Type Associated Problems Recent Progress Patient-Stated? Author Hemoglobin A1c < 7 Result Component 8(07/07/2025 9:27 AM EDT) No Veronica Mclaughlin PharmD Record your blood sugar as directed [...] documented as of this encounter Care Teams Angle Shearer Relationship Specialty Start Date End Date Name, MD Mark [address] [place] [address] PCP - General Family Medicine 01/18/16 Veronica Mclaughlin, PharmD [address] [place] [phone] Pharmacist Internal Medicine 08/15/22 02/16/25 documented as of this encounter
--- OUTSIDE RECORDS SUMMARY | 2025-07-07 11:48 | XMS_ITS | Encounter Summary ---
Author Organization [employer] Address [address] [place] [address] 7 [place] [address] Care Team Providers Care Can Cutter Name Role Phone Name, Mark QUINTANA Primary Care Provider Veronica Mclaughlin PharmD Unavailable Reason for Visit * Reason Comments Med Refill Encounter Details Date Type Department Care Team ([facility] Contact Info) Description 12/12/2022 Refill [facility] MEDICINE [address] [place] [address] Name, MD Mark [address] [place], [place] [phone] Diabetes mellitus type 2 in obese ([facility]) Social History Tobacco Use Types Packs/Day Years Used Date Smoking Tobacco: Never Assessed Comments Unknown Sex and Gender Information Value Date Recorded Sex Assigned at Female 07/24/2022 10:29 AM EDT Legal Sex Female 10:29 AM EDT Gender Identity Female 07/24/2022 10:29 AM EDT Sexual Orientation Don't know 07/24/2022 10 :29 AM EDT COVID-19 Exposure Response Date Recorded In the last 10 days, have yo u been in contact with someone who was confirmed or suspected to have Coronavirus/COVID-19? No / Unsure 12/11/2022 1:44 PM EDT documented as of this encounter Plan of Treatment Upcoming Encounters Date Type Department Care Team (Late Contact Info) Description 07/22/2025 2:30 PM EDT Office Visit [facility] OPTOMETRY [address] [place], [place] [phone] Odalys Christina, ALEXYS [address] [place] [address] documented as of this encounter Goals Goal [...] as of this encounter Visit Diagnoses Diagnosis Diabetes mellitus type 2 in obese Type II or unspecified type diabetes mellitus without mention of complication, not stated as uncontrolled documented in this encounter Care Teams Can Cutter Relationship Specialty Start Date End Date Name, MD Mark [address] [place] [address] PCP - General Family Medicine 01/18/16 Veronica Mclaughlin PharmD [address] [place] [address] Pharmacist Internal Medicine 08/15/22 02/16/25 documented as of this encounter
--- OUTSIDE RECORDS SUMMARY | 2025-07-07 11:48 | XMS_ITS | Encounter Summary ---
Author Organization [employer] Address [address] [place] [address] 7 [place] [address] Care Team Providers Care Fancy Wire Drawer Name Role Phone Name, Mark QUINTANA Primary Care Provider [phone] Veronica Mclaughlin PharmD Unavailable [phone] Reason for Visit * Reason Comments Med Refill Encounter Details Date Type Department Care Team (Late st Contact Info) Description 06/08/[address] [facility] [address] [place] [address] Name, MD Mark [address] [place] [address] Social History Tobacco Use Types Packs/Day Years [...] 2:30 PM EDT Office Visit [facility] OPTOMETRY [address] [place] [address] Odalys Christina, OD [address] [place] [address] documented as of this encounter Goals Goal Patient Goal Type Associated Problems Recent Progress Patient-Stated? Author Hemoglobin A1c < 7 Result Component 8(07/07/2025 9:27 AM EDT) No Veronica Mclaughlin, PharmD Record [...] documented as of this encounter Care Teams Fancy Wire Drawer Relationship Specialty Start Date End Date Name, MD Mark [address] [place] [address] PCP - General Family Medicine 01/18/16 Puia, Raul Martin [address] [place] [address] Pharmacist Internal Medicine 08/15/22 02/16/25 documented as of this encounter
--- OUTSIDE RECORDS SUMMARY | 2025-07-07 11:49 | XMS_ITS | Encounter Summary ---
Author Organization [employer] Address [address] [place] [address] 7 [place] [address] Care Team Providers Care Quality System Manager Name Role Phone Name, Mark QUINTANA Primary Care Provider [phone] Veronica Mclaughlin PharmD Unavailable [phone] Reason for Visit * Reason Comments Med Refill Encounter Details Date Type Department Care Team ([facility] st Contact Info) Description 11/01/2023 Refill [facility] MEDICINE [address] [place], [place] [phone] Puia Veronica, PharmD [address] [place] [address] Diabetes mellitus without complication (CMS/HCC) Social History Tobacco Use Types Packs/Day Years [...] 07/22/2025 2:30 PM EDT Office Visit [facility] OPTOMETRY [address] [place], [place] [phone] Odalys Chritsina, OD [address] [place] [address] documented as of this encounter Goals Goal [...] this encounter Visit Diagnoses Diagnosis Diabetes mellitus without complication (HCC) Type II or unspecified type diabetes mellitus without mention of complication, not stated as uncontrolled documented in this encounter Additional Health Concerns Assessment Noted Time PHQ-9 Depression Total Score: 24 024 9:15 AM EST documented as of this encounter Care Teams Quality System Manager Relationship Specialty Start Date End Date Name, MD Mark [address] [place] [address] PCP - General Family Medicine 01/18/16 Veronica Mclaughlin, Raul [address] [place] [address] Pharmacist Internal Medicine 08/15/22 02/16/25 documented as of this encounter
--- OUTSIDE RECORDS SUMMARY | 2025-07-07 11:49 | XMS_ITS | Encounter Summary ---
Author Organization [employer] Address [address] [facility] 7t [place] [address] Care Team Providers Care Second Chef Name Role Phone Name, Mark QUINTANA Primary Care Provider [phone] Encounter Details Date Type Department Care Team (Latest Contact Info) Description 07/07/2025 Travel Social History Tobacco Use Types Packs/Day Years [...] Description 07/22/2025 2:30 PM EDT Office Visit [facility] OPTOMETRY [address] [place] [address] Sanford, Odalys, OD [address] [place], [place] [phone] documented as of this encounter Goals Goal Patient Goal Type Associated Problems Recent Progress Patient-Stated? Author Hemoglobin A1c < 7 Result Component 8(07/07/2025 9:27 AM EDT) No Veronica Mclaughlin, PharmD Record your blood sugar as directed Result Component No Arnoldo, Veronica, PharmD Note: Patient will use CGM, ensuring sensor is scanned at least once every 8 hours to capture 24H data. Check BG manually, as required. documented as of this encounter Visit Diagnoses Not on filedocumented in this encounter Additional Health Concerns Assessment Noted Time PHQ-9 Depression Total Score: 23 025 11:54 AM EDT documented as of this encounter Care Teams Second Chef Relationship Specialty Start Date End Date Name, MD Mark [address] [place] [address] PCP - General Family Medicine 01/18/16 documented as of this encounter
--- OUTSIDE RECORDS SUMMARY | 2025-07-07 11:49 | XMS_ITS | Encounter Summary ---
Author Organization [employer] Address [address] [place] [address] 7 [place] [address] Care Team Providers Care Economics Faculty Member Name Role Phone Name, Mark QUINTANA Primary Care Provider [phone] Veronica Mclaughlin PharmD Unavailable [phone] Reason for Visit * Reason Comments Med Refill Encounter Details Date Type Department Care Team ([facility] st Contact Info) Description 12/02/2024 Refill [facility] MEDICINE [address] [place], [place] [phone] Name, MD Mark [address] [place], [place] [phone] Social History Tobacco Use Types Packs/Day Years [...] Description 07/22/2025 2:30 PM EDT Office Visit [facility] OPTOMETRY [address] [place], [place] [phone] Odalys Christina, OD [address] [place] [address] documented as of this encounter Goals Goal [...] documented as of this encounter Care Teams Economics Faculty Member Relationship Specialty Start Date End Date Name, MD Mark [address] [place] [address] PCP - General Family Medicine 01/18/16 Veronica Mclaughlin, PharmD [address] [place] [address] Pharmacist Internal Medicine 08/15/22 02/16/25 documented as of this encounter
--- OUTSIDE RECORDS SUMMARY | 2025-07-07 11:49 | XMS_ITS | Encounter Summary ---
Author Organization [employer] Address [address] [facility] 7 [place] [address] Care Team Providers Care Manager Plant Name Role Phone Name, Mark QUINTANA Primary Care Provider [phone] Reason for Visit * Reason Comments Med Refill Encounter Details Date Type Department Care Team ([facility] st Contact Info) Description 07/03/2025 Refill [facility] MEDICINE [address] [place], [place] [phone] Name, MD Mark [address] [place] [address] Bipolar disorder in remission ([facility]) Social History Tobacco Use Types Packs/Day Years [...] Description 07/22/2025 2:30 PM EDT Office Visit [facility] OPTOMETRY [address] [place], [place] [phone] Odalys Christina, OD [address] [place] [address] documented as of this encounter Goals Goal Patient Goal Type Associated Problems Recent Progress Patient-Stated? Author Hemoglobin A1c < 7 Result Component 8(07/07/2025 9:27 AM EDT) No Veronica Mclaughlin, PharmD Record your blood sugar as directed Result Component No Kwaku Mclaughlinyssa, PharmD Note: Patient will use CGM, ensuring sensor is scanned at least once every 8 hours to capture 24H data. Check BG manually, as required. documented as of this encounter Visit Diagnoses Diagnosis Bipolar disorder in remission ([facility]) Bipolar disorder, unspecified documented in this encounter Additional Health Concerns Assessment Noted Time PHQ-9 Depression Total Score: 23 025 11:54 AM EDT documented as of this encounter Care Teams Manager Plant Relationship Specialty Start Date End Date Name, MD Mark [address] [place], [place] [phone] PCP - General Family Medicine 01/18/16 documented as of this encounter
--- OUTSIDE RECORDS SUMMARY | 2025-07-07 11:49 | XMS_ITS | Encounter Summary ---
Author Organization [employer] Address [address] [facility] 7 [place] [address] Care Team Providers Care Pulp Bleacher Name Role Phone Name, Mark QUINTANA Primary Care Provider [phone] Reason for Visit * Reason Comments Med Refill Encounter Details Date Type Department Care Team ([facility] st Contact Info) Description 07/01/2025 Refill [facility] MEDICINE [address] [place], [place] [phone] Hugo Epps MD [address] [place], [place] [phone] Psoriasis vulgaris; Inverse psoriasis Social History Tobacco Use Types Packs/Day Years [...] Description 07/22/2025 2:30 PM EDT Office Visit [facility] OPTOMETRY [address] [place], [place] [phone] Odalys Christina, OD [address] [place] [address] documented as of this encounter Goals Goal Patient Goal Type Associated Problems Recent Progress Patient-Stated? Author Hemoglobin A1c < 7 Result Component 8(07/07/2025 9:27 AM EDT) No PuiaKwakuVeronica, PharmD Record your blood sugar as directed Result Component No Puia, Veronica, PharmD Note: Patient will use CGM, ensuring sensor is scanned at least once every 8 hours to capture 24H data. Check BG manually, as required. documented as of this encounter Visit Diagnoses Diagnosis Psoriasis vulgaris Other psoriasis Inverse psoriasis Other psoriasis documented in this encounter Additional Health Concerns Assessment Noted Time PHQ-9 Depression Total Score: 23 025 11:54 AM EDT documented as of this encounter Care Teams Pulp Bleacher Relationship Specialty Start Date End Date Name, MD Mark [address] [place], [place] [phone] PCP - General Family Medicine 01/18/16 documented as of this encounter
--- OUTSIDE RECORDS SUMMARY | 2025-07-07 11:49 | XMS_ITS | Encounter Summary ---
Author Organization [employer] Address [address] [place] [address] 7 [place] [address] Care Team Providers Care Loader Helper Name Role Phone Name, Mark QUINTANA Primary Care Provider PuVeronica hamm PharmD Unavailable [phone] Reason for Visit * Reason Comments Med Refill Encounter Details Date Type Department Care Team ([facility] Contact Info) Description 02/17/2023 Refill [facility] MEDICINE [address] [place] [address] Puia, Veronica, PharmD [address] [place] [address] Diabetes mellitus without complication (CMS/HCC) Social History Tobacco Use Types Packs/Day Years Used Date Smoking Tobacco: Never Smokeless Tobacco: Never Depression Answer Date Recorded Patient Health Questionnaire-9 Score 9 01/10/2023 Depression Answer Date Recorded Patient Health Questionnaire-2 Score 4 01/10/2023 Comments Unknown Sex and Gender Information Value [...] was confirmed or suspected to have Coronavirus/COVID-19? Unable to assess 02/06/2023 12:15 PM EDT documented as of this encounter Plan of Treatment Upcoming Encounters Date Type Department Care Team (Late Contact Info) Description 07/22/2025 2:30 PM EDT Office Visit [facility] OPTOMETRY [address] [place], [place] [phone] Odalys Christina, OD [address] [place] [address] documented as of this encounter Goals Goal Patient Goal Type Associated Problems Recent Progress Patient-Stated? Author Hemoglobin A1c < 7 Result Component 8(07/07/2025 9:27 AM EDT) No Veronica Mclaughlin, PharmGene Record your blood sugar as directed Result Component No Veroncia Mclaughlin PharmD Note: Patient will use CGM, [...] Assessment Noted Time PHQ-9 Depression Total Score: 9 01/11/20 23 2:04 PM EDT documented as of this encounter Care Teams Loader Helper Relationship Specialty Start Date End Date Name, MD Mark [address] [place] [address] PCP - General Family Medicine 01/18/16 Veronica Mclaughlin PharmD [address] [place] [address] Pharmacist Internal Medicine 08/15/22 02/16/25 documented as of this encounter
[2025-07-07 12:01] LABS: Hematocrit 40.4 % (37.0-47.0); Hemoglobin 13.3 g/dl (12.0-16.0); Imm Gran Abs Auto 0.03 X10*3/uL (0.00-0.03); Imm Gran Pct Auto 0.4 % (0.0-0.4); Lymphocytes Absolute Auto 1.6 X10*3/uL (1.2-4.9); Mean Corpuscular HGB Conc 32.9 g/dl (31.0-35.0); Mean Corpuscular Hemoglobin 30.0 pg (27.0-33.0); Mean Corpuscular Volume 91.2 fL (80.0-98.0); NRBC Abs Auto 0.000 X10*3/uL (0.0-0.012); NRBC Pct Auto 0.0 /100WBC (0.0-0.2); Platelet Count 255 X10*3/uL (160-400); Red Blood Count 4.43 X10*6/uL (4.20-5.50); White Blood Count 7.5 X10*3/uL (4.8-10.8)
[2025-07-07 12:21] LABS: Anion Gap 15 (12-20); Blood Urea Nitrogen 8 mg/dL (9-16); Calcium 9.3 mg/dL (8.4-10.2); Carbon Dioxide 30 mmol/L (22-29); Chloride 102 mmol/L (96-108); Estimated Glomerular Filt Rate > 60; Potassium 3.7 mmol/L (3.3-5.1); Sodium 143 mmol/L (135-145)
== END 2025-07-07 10:12 | disposition home or self-care (01) ==
LOC: HO.HHCL 10:11
PROVIDERS: PCP Internal Medicine Geriatric Medicine; Visit Provider Internal Medicine Geriatric Medicine
DX: E87.6 Hypokalemia (principal); R00.0 Tachycardia, unspecified
CPT/HCPCS: 36415; 80048; 84443; 85025

== ENCOUNTER 2025-08-28 15:35 | Outpatient (REF) | payer MEDICAID, SELFPAY ==
--- OUTSIDE RECORDS SUMMARY | 2025-08-28 15:00 | XMS_ITS | Encounter Summary ---
Author Organization [employer] Address [address] [place] [address] [address] [place] [address] Care Team Providers Care Wet Finisher Name Role Phone Name, Mark QUINTANA Primary Care Provider [phone] Reason for Visit * Consultation (Routine) - Closed Specialty Diagnoses / Procedures Referred By Parrish t Referred To Contact Family Medicine Diagnoses Psoriasis Name, MD Mark [address] [place] [address] Phone: tel: fax: Referral ID Status Reason Start Date Expiration Date V isits Requested Visits Authorized [id number] Closed Specialty Services Required 11/11/2024 11/11/2025 1 1 Encounter Details Date Type Department Care Team (Late st Contact Info) Description 08/28/2025 3:00 PM EST Office Visit [facility] [address] [place] [address] [phone] Hugo Epps MD [address] [place] [address] [phone] Inverse psoriasis (Primary Dx); Psoriasis; Psoriasis vulgaris Social History Tobacco Use Types Packs/Day Years Used Date Smoking Tobacco: Never Smokeless Tobacco: Never Alcohol Use Standard Drinks/Week Comments Never 0 (1 standard drink = 0.6 oz pur e alcohol) Depression Answer Date Recorded Patient Health Questionnaire-9 Score 03/17/2025 Patient Health Questionnaire-9 Score 03/17/2025 Last PHQ-9: Questionnaire Data Not on [...] Sign Reading Time Taken Comments Blood Pressure 140/70 08/28/2025 3:06 PM EST Pulse 92 08/28/2025 3:06 PM EST Temperature 35.8 C (96.4 F) 08/28/2025 3:06 PM EST Respiratory Rate 19 08/28/2025 3:06 PM EST Oxygen Saturation 96% 08/28/2025 3:06 PM EST Inhaled Oxygen Concentration - - Weight 102 kg (225 lb 12.8 oz) 08/28/2025 3:06 P M EST Height 160 cm (5' 3 ) 08/28/2025 3:06 PM EST Body Mass Index 40 08/28/2025 3:06 PM EST documented in this encounter Progress Notes * Hugo Epps MD - 08/28/2025 3:00 PM EST Subjective Patient ID: Ashley Maloney is a 60 y.o. female who presents for No chief complaint on file.. HPI 60yr old woman with history of psoriasis, on methotrexate and folic acid as well topical steroids .Not improving. Has been on treatment for more than 3 months Review of Systems Constitutional: Negative for diaphoresis, fatigue and fever. HENT: Negative for ear discharge, ear pain, facial swelling and hearing loss. Respiratory: Negative for cough, choking, chest tightness and shortness of breath. Cardiovascular: Negative for chest pain and leg swelling. Gastrointestinal: Negative for abdominal distention, abdominal pain and anal bleeding. Endocrine: Negative for cold intolerance and heat intolerance. Genitourinary: Negative for enuresis, flank pain and frequency. Musculoskeletal: Negative for arthralgias, back pain and gait problem. Neurological: Negative for dizziness, facial asymmetry and headaches. Psychiatric/Behavioral: Negative for agitation, behavioral problems and confusion. Objective Physical Exam Constitutional: Appearance: Normal appearance. HENT: Head: Normocephalic and atraumatic. Nose: Nose normal. Eyes: Pupils: Pupils are equal, round, and reactive to light. Pulmonary: Effort: Pulmonary effort is normal. Musculoskeletal: General: Normal range of motion. Cervical back: Normal range of motion. Skin: Comments: Erythematous scaly plaques on upper and lower extremities, scalp and nonscaly lesions on upper inner thighs. Neurological: General: No focal deficit present. Mental Status: She is alert. Assessment/Plan Diagnoses and all orders for this visit: 60 yr old woman with history of Psoriasis and DM here today for follow up. She has been on Methotrexate and folic acid for more than 3 months in addition to topical steroids high potency without relief. Will switch her topical steroids to Halobetasol and Dovonex Continue Methotrexate BSA affected is >6% Rx Tremfya , complete lab work RTC in 6-8 weeks Inverse psoriasis - calcipotriene (Dovonex) 0.005 % ointment; Apply topically 2 times daily. - halobetasol (UltraVATE) 0.05 % ointment; Apply topically 2 times daily. - Fluocinolone Acetonide Scalp 0.01 % oil; APPLY AT NIGHT 3 TIMES A WEEK AND COVER HEAD WITH COVER DIRECTED. Psoriasis Comments: . Orders: - Referral to [facility] D[facility] Skin Adult - QuantiFERON??-TB Gold Plus, 1 Tube - calcipotriene (Dovonex) 0.005 % ointment; Apply topically 2 times daily. - halobetasol (UltraVATE) 0.05 % ointment; Apply topically 2 times daily. Psoriasis vulgaris - Fluocinolone Acetonide Scalp 0.01 % oil; APPLY AT NIGHT 3 TIMES A WEEK AND COVER HEAD WITH COVER DIRECTED. documented in this encounter Plan of Treatment Upcoming Encounters Date Type Department Care Team (Late st Contact Info) Description 10/02/2025 2:00 PM EST Office Visit [facility] [address] [place] [address] Hugo Epps MD [address] [place], [place] [phone] Scheduled Orders Name Type Priority Associated Diagnoses Orde r Schedule QuantiFERON -TB Gold Plus, 1 Tube Lab Routine Psoriasis Ordered: 08/28/2025 documented as of this encounter Goals Goal Patient Goal Type Associated Problems Recent Progress Patient-Stated? Author Hemoglobin A1c < 7 Result Component 8(07/07/2025 9:27 AM EDT) No Veronica Mclaughlin, PharmGene Record your blood sugar as directed Result Component No Veronica Mclaughlin, AlyseD Note: Patient will use CGM, ensuring sensor is scanned at least once every 8 hours to capture 24H data. Check BG manually, as required. Help patients manage their type 2 diabetes Care Plan Help patients manage their type 2 diabetes No SanfordAlexn, OD Weekly blood pressure task Care Plan Weekly blood pressure task No Sanford, Odalys, OD Help patients manage their type 2 diabetes Care Plan Help patients manage their type 2 diabetes No Sanford, Odalys, OD Patient has chronic kidney disease Care Plan Patient has chronic kidney disease No Sanford, Odalys, OD Weekly blood pressure task Care Plan Weekly blood pressure task No Sanford, Odalys, OD Patient has chronic kidney disease Care Plan Patient has chronic kidney disease No SanfordAlexn, OD Weekly blood pressure task Care Plan Weekly blood pressure task No Ivet Randall LPN Weekly blood pressure task Care Plan Weekly blood pressure task No Ivet Randall LPN Patient has chronic kidney disease Care Plan Patient has chronic kidney disease No Ivet Randall LPN Patient has chronic kidney disease Care Plan Patient has chronic kidney disease No Ivet Randall LPN Weekly blood pressure task Care Plan Weekly blood pressure task No Atif Persaud Weekly blood pressure task Care Plan Weekly blood pressure task No Atif Persaud Patient has chronic kidney disease Care Plan Patient has chronic kidney disease No Atif Persaud Patient has chronic kidney disease Care Plan Patient has chronic kidney disease No Atif Persaud Weekly blood pressure task Care Plan Weekly blood pressure task No Atif Persaud Weekly blood pressure task Care Plan Weekly blood pressure task No Atif Persaud Patient has chronic kidney disease Care Plan Patient has chronic kidney disease No Atif Persaud Patient has chronic kidney disease Care Plan Patient has chronic kidney disease No Atif Persaud Weekly blood pressure task Care Plan Weekly blood pressure task No Atif Persaud Weekly blood pressure task Care Plan Weekly blood pressure task No Atif Persaud Patient has chronic kidney disease Care Plan Patient has chronic kidney disease No Atif Persaud Patient has chronic kidney disease Care Plan Patient has chronic kidney disease No Atif Persaud Weekly blood pressure task Care Plan Weekly blood pressure task No Ivet Chang, PharmD Weekly blood pressure task Care Plan Weekly blood pressure task No Ivet Chang, PharmD Patient has chronic kidney disease Care Plan Patient has chronic kidney disease No Ivet Chang, PharmD Patient has chronic kidney disease Care Plan Patient has chronic kidney disease No Ivet Chang, PharmD Weekly blood pressure task Care Plan Weekly blood pressure task No Marcelino Tyler MA Weekly blood pressure task Care Plan Weekly blood pressure task No Marcelino Tyler MA Patient has chronic kidney disease Care Plan Patient has chronic kidney disease No Marcelino Tyler MA Patient has chronic kidney disease Care Plan Patient has chronic kidney disease No Marcelino Tyler MA documented as of this encounter Visit Diagnoses Diagnosis Inverse psoriasis- Primary Other psoriasis Psoriasis Other psoriasis Psoriasis vulgaris Other psoriasis documented in this encounter Additional Health Concerns Active Problems Noted Date Diagnosed Date Help patients manage their type 2 diabetes 08/10 Weekly blood pressure task 08/10/2025 Help patients manage their type 2 diabetes 08/10 Patient has chronic kidney disease 08/10/2025 Weekly blood pressure task 08/10/2025 Patient has chronic kidney disease 08/10/2025 Weekly blood pressure task 08/24/2025 Weekly blood pressure task 08/24/2025 Patient has chronic kidney disease 08/24/2025 Patient has chronic kidney disease 08/24/2025 Weekly blood pressure task 08/26/2025 Weekly blood pressure task 08/26/2025 Patient has chronic kidney disease 08/26/2025 Patient has chronic kidney disease 08/26/2025 Weekly blood pressure task 08/26/2025 Weekly blood pressure task 08/26/2025 Patient has chronic kidney disease 08/26/2025 Patient has chronic kidney disease 08/26/2025 Weekly blood pressure task 08/26/2025 Weekly blood pressure task 08/26/2025 Patient has chronic kidney disease 08/26/2025 Patient has chronic kidney disease 08/26/2025 Weekly blood pressure task 08/28/2025 Weekly blood pressure task 08/28/2025 Patient has chronic kidney disease 08/28/2025 Patient has chronic kidney disease 08/28/2025 Weekly blood pressure task 08/28/2025 Weekly blood pressure task 08/28/2025 Patient has chronic kidney disease 08/28/2025 Patient has chronic kidney disease 08/28/2025 Assessment Noted Time PHQ-9 Depression Total Score: 23 025 11:54 AM EDT documented as of this encounter Care Teams Wet Finisher Relationship Specialty Start Date End Date Name, MD Mark [address] [place] [id number] PCP - General Family Medicine 01/18/16 documented as of this encounter
--- OUTSIDE RECORDS SUMMARY | 2025-08-28 19:35 | XMS_ITS | Encounter Summary ---
Author Organization [facility] Address [address] [place] [address] [address] [place] [address] Care Team Providers Care Brake Repairer Name Role Phone Name, Mark QUINTANA Primary Care Provider PuVeronica hamm PharmD Unavailable [phone] Reason for Visit * Reason Comments Med Refill Encounter Details Date Type Department Care Team ([facility] Contact Info) Description 02/17/2023 Refill [facility] [address] [place] [address] Puia, Veronica, PharmD [address] [place] [address] Diabetes mellitus without complication (CMS/HCC) Social History [...] Upcoming Encounters Date Type Department Care Team ([facility] Contact Info) Description 10/02/2025 2:00 PM EST Office Visit [facility] [address] [facility] [place] [address] Hugo Epps MD [address] [place] [address] documented as of this encounter Goals Goal [...] documented as of this encounter Care Teams Brake Repairer Relationship Specialty Start Date End Date Name, [place] [address] PCP - General Family Medicine 01/18/16 Veronica Mclaughlin, [place] [address] Pharmacist Internal Medicine 08/15/22 02/16/25 documented as of this encounter
--- OUTSIDE RECORDS SUMMARY | 2025-08-28 19:35 | XMS_ITS | Clinical Summary ---
Author Organization [employer] Address [address] [place] [address] 7 [place] [address] Care Team Providers Care Tone Cabinet Assembler Name Role Phone Name, Mark QUINTANA Primary Care Provider [phone] Allergies Active Allergy Reactions Criticality Noted Date [...] twice daily 1 each 10/30/19 24 Active losartan (Cozaar) 25 MG tabletIndicatio ns:Essential hypertension TAKE 1 TABLET BY MOUTH EVERY MORNING 90 tablet 3 09/19/20 24 Active montelukast (Singulair) 10 MG tablet TAKE 1 TABLET BY MOUTH AT BEDTIME 90 tablet 3 5 1:24 PM EST 09/19/20 24 Active nystatin (Mycostatin) 005030 UNIT/GM powder Apply topically 2 times daily. 60 g 3 11/04/19 25 026 Active pravastatin (Pravachol) 20 MG tabletIndicatio ns:Type 2 diabetes mellitus with hyperglycemia, with long-term current use of insulin (HCC) Take 1 tablet (20 mg) by mouth Once per day. 30 tablet 11 5 1:24 PM EST 11/11/19 25 026 Active TRUEplus Lancets 33G miscIndications :Type 2 diabetes mellitus with hyperglycemia, with long-term current use of insulin (HCC) USE DIRECTED TO TEST BLOOD SUGAR FOUR TIMES DAILY 100 each 11/17/19 25 Active Continuous Glucose Pediatric Neuropsychologist (FreeStyle Gera 3 [place]) device 1 each Once per day. Use as directed for CGM 1 each 12/04/19 25 Active Continuous Glucose Sensor (FreeStyle Gera 3 Plus Sensor) misc Apply 1 every 15 days as directed for CGM 2 each 5 1:24 PM EST 12/04/19 25 Active glucose blood (FreeStyle Precision Quan Test) test stripIndication s:Type 2 diabetes mellitus with hyperglycemia, with long-term current use of insulin ([facility]) Use to test blood sugar up to 4 times daily, as directed 100 each 5 1:24 PM EST 12/04/19 25 Active insulin lispro (HumaLOG) 100 UNIT/ML injectionIndica tions:Type 2 diabetes mellitus with hyperglycemia, with long-term current use of insulin ([facility]) Inject with 24 units subQ three times daily w/ meals, as directed. 30 mL 02/18/20 25 Active SITagliptin-met FORMIN ER (Janumet XR) 50-500 MG per 24 hr tabletIndicatio ns:Type 2 diabetes mellitus with hyperglycemia, with long-term current use of insulin ([facility]) Take 1 tablet by mouth with breakfast and with evening meal. 60 tablet 5 1:24 PM EST 02/18/20 25 026 Active Alcohol Swabs (Alcohol Prep) 70 % padsIndications :Diabetes mellitus without complication (HCC) USE DIRECTED FOUR TIMES DAILY AND EVERY 2 WEEKS FOR sensors 100 each 5 1:24 PM EST 04/02/20 25 Active Multiple Vitamin (Multivitamin) tablet TAKE 1 TABLET BY MOUTH EVERY MORNING 90 tablet 2 04/15/20 25 Active cholecalciferol VITAMIN D (Vitamin D-3) 50 MCG (1999 UT) tablet TAKE 1 TABLET BY MOUTH EVERY MORNING 90 tablet 2 04/15/20 25 Active folic acid (Folvite) 1 MG tabletIndicatio ns:Psoriasis vulgaris,Invers e psoriasis Take 1 tablet (1 mg) by mouth Once per day. 30 tablet 5 1:24 PM EST 05/01/20 25 026 Active metoprolol tartrate (Lopressor) 25 MG tablet TAKE 1 TABLET BY MOUTH TWICE DAILY IN THE MORNING AND IN THE EVENING 180 tablet 2 5 1:24 PM EST 05/12/20 25 Active methotrexate 2.5 MG tabletIndicatio ns:Psoriasis vulgaris,Invers e psoriasis TAKE 6 TABLETS BY MOUTH ONCE WEEKLY SUNDAY MORNING DIRECTED 24 tablet 2 5 1:24 PM EST 07/03/20 25 Active QUEtiapine (SEROquel) 200 MG tabletIndicatio ns:Bipolar disorder in remission (CMS/HCC) TAKE 2 TABLETS BY MOUTH EVERY DAY AT BEDTIME 60 tablet 5 5 1:24 PM EST 07/03/20 25 Active insulin glargine (Toujeo Max SoloStar) 300 UNIT/ML injectionIndica tions:Type 2 diabetes mellitus with hyperglycemia, with long-term current use of insulin ([facility]) Inject 80 units subQ once daily as directed.Inje ct 72 units subQ once daily as directed. 12 mL 5 5 1:24 PM EST 07/07/20 25 Active hydroCHLOROthia zide (HYDRODiuril) 25 MG tablet TAKE 1 TABLET BY MOUTH EVERY MORNING 90 tablet 1 08/04/20 25 Active brimonidine (AlphaGAN) 0.2 % ophthalmic solution instill 1 drop in both eyes twice daily 04/07/20 25 Active dorzolamide (Trusopt) 2 % ophthalmic solution Administer 1 drop into both eyes 2 times daily. 05/19/20 25 Active insulin pen needle (Pentips Generic Pen Butler) 32G x 4 mm miscIndications :Diabetes mellitus without complication (HCC) USE DIRECTED FOUR TIMES DAILY 100 each 11 5 3:50 PM EST 08/24/20 25 Active clonazePAM (KlonoPIN) 0.5 MG tabletIndicatio ns:Tachycardia Take 1 tablet (0.5 mg) by mouth if needed in the morning and at bedtime for anxiety. 14 tablet 5 3:50 PM EST 08/26/20 25 025 Active amitriptyline (Elavil) 50 MG tablet Take 1 tablet (50 mg) by mouth at bedtime. 30 tablet 3 08/28/20 25 Active calcipotriene (Dovonex) 0.005 % ointmentIndicat ions:Psoriasis, Inverse psoriasis Apply topically 2 times daily. 120 g 2 08/28/20 25 Active halobetasol (UltraVATE) 0.05 % ointmentIndicat ions:Psoriasis, Inverse psoriasis Apply topically 2 times daily. 150 g 2 08/28/20 25 Active Fluocinolone Acetonide Scalp 0.01 % oilIndications: Inverse psoriasis,Psori asis vulgaris APPLY AT NIGHT 3 TIMES A WEEK AND COVER HEAD WITH COVER DIRECTED. 118.28 mL 1 08/28/20 25 Active guselkumab (Tremfya) 100 MG/ML injectionIndica tions:Psoriasis ,Inverse psoriasis,Psori asis vulgaris Inject 1 mL (100 mg) under the skin every 8 (eight) weeks. 1 mL 08/28/20 25 Active Pentips Generic Pen Butler 32G X 4 MM miscIndications :Diabetes mellitus without complication (HCC) USE DIRECTED FOUR TIMES DAILY 100 each 11 5 1:24 PM EST 09/16/20 24 025 Discontinued(R eorder (will not trigger notification to Pharmacy)) timolol (Timoptic) 0.5 % ophthalmic solution Administer 1 drop into both eyes in the morning. 5 mL 11 12/20/19 25 025 Discontinued(S katey effects) hydroCHLOROthia zide (HYDRODiuril) 25 MG tablet TAKE 1 TABLET BY MOUTH EVERY MORNING 90 tablet 1 02/25/20 25 025 Discontinued(R eorder (will not trigger notification to Pharmacy)) betamethasone, augmented, (Diprolene) 0.05 % ointmentIndicat ions:Psoriasis vulgaris,Invers e psoriasis Apply topically 2 times daily. 15 g 05/01/20 25 025 Discontinued Fluocinolone Acetonide Scalp ([place]-Smoothe/ FS Scalp) 0.01 % oilIndications: Psoriasis vulgaris,Invers e psoriasis Apply at night 3 times weekly cover with head cover 118.28 mL 1 05/01/20 25 025 Discontinued amitriptyline (Elavil) 50 MG tablet TAKE 1 TABLET BY MOUTH AT BEDTIME 30 tablet 3 05/11/20 25 025 Discontinued(R eorder (will not trigger notification to Pharmacy)) clotrimazole-be tamethasone (Lotrisone) creamIndication s:Tinea corporis APPLY TOPICALLY TO AFFECTED AREA(S) TWICE DAILY FOR 28 DAYS 45 g 2 5 1:24 PM EST 05/19/20 25 025 Discontinued clonazePAM (KlonoPIN) 0.5 MG tabletIndicatio ns:Tachycardia Take 1 tablet (0.5 mg) by mouth if needed in the morning and at bedtime for anxiety for up to 7 days. 14 tablet 07/07/20 25 025 Discontinued(R eorder (will not trigger notification to Pharmacy)) clotrimazole-be tamethasone (Lotrisone) creamIndication s:Tinea corporis APPLY TOPICALLY TO THE AFFECTED AREA(S) TWICE DAILY FOR 28 DAYS 45 g 2 08/24/20 25 025 Discontinued Fluocinolone Acetonide Scalp 0.01 % oilIndications: Psoriasis vulgaris,Invers e psoriasis APPLY AT NIGHT 3 TIMES A WEEK AND COVER HEAD WITH COVER DIRECTED. 118.28 mL 1 08/26/20 25 025 Discontinued(R eorder (will not trigger notification to Pharmacy)) Active Problems Problem Noted Date Diagnosed Date [...] 11/20/2023 Severe obesity (BMI 35.0-39.9) with comorbidity (CMS/HCC) 11/20/2023 Type 2 diabetes mellitus 11/20/2023 Family [...] Encounters Date Type Department Care Team Description 08/28/2025 3:00 PM EST Office Visit [facility] [address] [place] [address] Hugo Epps MD Inverse psoriasis (Primary Dx); Psoriasis; Psoriasis vulgaris 08/28/2025 Travel 08/28/2025 Refill [facility] [address] [facility] [place] [address] NameMark MD 08/26/2025 Telephone [facility] [address] [facility] [place] [address] Mark Juan MD Appointment Request 08/26/2025 Refill [facility] [address] [facility] [place] [address] Mark Juan MD Tachycardia 08/26/2025 Refill [facility] [address] [place] [address] Hugo Epps MD Psoriasis vulgaris; Inverse psoriasis 08/26/2025 Telephone [facility] [address] [place] [phone] Mark Juan MD Med Refill 08/22/2025 Refill [facility] [address] [place] [address] NameMark MD Diabetes mellitus without complication (HCC) 08/21/2025 Refill [facility] [address] [place] [phone] Mark Juan MD Tinea corporis; Diabetes mellitus without complication (HCC) 08/04/2025 Refill [facility] [address] [place] [phone] NameMark MD 07/22/2025 2:30 PM EDT Office Visit [facility] [address] [place] [address] Sanford, Odalys, OD Diabetes type 2, no ocular involvement (HCC) (Primary Dx); White without pressure of peripheral retina of both eyes; Ocular hypertension, bilateral; Combined form of age-related cataract, both eyes; Presbyopia 07/22/2025 Travel 07/17/2025 Telephone [facility] [address] [place] [phone] NameMark MD Telephone Call 07/13/2025 Telephone [facility] [address] [place] [phone] Mark Juan MD 07/10/2025 Abstract [facility] [address] [place] [phone] Mark Juan MD 07/07/2025 9:15 AM EDT Office Visit [facility] [address] [place] [phone] NameMark MD Type 2 diabetes mellitus with hyperglycemia, with long-term current use of insulin (HCC) (Primary Dx); Tachycardia; Generalized anxiety disorder; Hypokalemia; Breast cancer screening by mammogram; Encounter for immunization 07/07/2025 Travel 07/06/2025 Telephone [facility] [address] [place] [phone] Mark Juan MD Chart Prep 07/03/2025 Refill [facility] [address] [place] [phone] Name, MD Mark Bipolar disorder in remission ([facility]) 07/01/2025 Refill [facility] [address] [place] [address] Hugo Epps MD Psoriasis vulgaris; Inverse psoriasis from Last 3 Months Immunizations Immunization Administration [...] Mass Index 40 08/28/2025 3:06 PM EST Plan of Treatment Upcoming Encounters Date Type Department Care Team (Late st Contact Info) Description 10/02/2025 2:00 PM EST Office Visit [facility] [address] [place] [address] Hugo Epps MD [address] [place], [place] [phone] Health Maintenance Due Date Last Done Comments CT Colonography 1965 Colonoscopy 1965 FIT DNA/Cologuard 1965 FOBT 1965 Sigmoidoscopy 1965 Alcohol/Substance Use Screening 1977 Hepatitis A Vaccines (1 of 2 - Risk 2-dose series) 1984 RSV Patients and Patients Aged 60 years or older (1 - Risk 50-74 years 1-dose series) 2015 Colorectal Cancer Screening 06/10/2022 FIT 06/10/2022 06/10/2021 SDOH Screening 11/15/2024 11/15/2023 COVID-19 Vaccine ( season) 2025 08/04/2021, 12/24/2020, 12/03/2020 Depression Monitoring 09/16/2025 03/17/2025, 025 Diabetes: Hemoglobin A1C 10/07/2025 025, 02/17/2025, 11/11/2024, Additional history exists Lipid Panel 02/17/2026 02/17/2025, 07/26, 02/28/2023, Additional history exists Disability Screening 03/17/2026 03/17/2025 Diabetes: Urine Protein Screening 05/14/2026 05/14/2025, 05/01/2025, 01/19/2022, Additional history exists Diabetes: Foot Exam 07/07/2026 07/07/2025, 07/07/2025, 07/07/2025, Additional history exists Mammogram 07/23/2026 10/25/2021 Tobacco Screening 08/28/2026 08/28/2025 Eye Exam 07/22/2027 07/22/2025, 06/25, 07/22/2025, Additional history exists Cervical Cancer Screening 09/27/2028 [...] Component 8(07/07/2025 9:27 AM EDT) No Veronica Mcalughlin, PharmD Record your blood sugar as directed Result Component No Veronica Mclaughlin, PharmD Note: Patient will use CGM, ensuring sensor is scanned at least once every 8 hours to capture 24H data. Check BG manually, as required. Help patients manage their type 2 diabetes Care Plan Help patients manage their type 2 diabetes No Alex Christinan, OD Weekly blood pressure task Care Plan [...] Plan Weekly blood pressure task No Ivet Chang PharmD Weekly blood pressure task Care Plan [...] chronic kidney disease No Marcelino Tyler MA Procedures Procedure Name Priority Date/Time Associated Diagnosis Comments OCT, OPTIC NERVE - OU - BOTH EYES Routine 07/22/2025 2:30 PM EDT Ocular hypertension, bilateral TSH W/REFLEX TO FT4 Routine 07/07/2025 1 0:18 AM EDT Tachycardia CBC WITH AUTO DIFFERENTIAL Routine 07/07/2025 10:18 AM EDT Tachycardia BASIC METABOLIC PANEL Routine 07/07/2025 10:18 AM EDT Hypokalemia POCT GLYCATED HEMOGLOBIN, TOTAL Routine 07/07/2025 9:27 AM EDT Type 2 diabetes mellitus with hyperglycemia, with long-term current use of insulin (HCC) POCT GLUCOSE Routine 07/07/2025 9:27 AM EDT Type 2 diabetes mellitus with hyperglycemia, with long-term current use of insulin (HCC) ALBUMIN, RANDOM URINE W/CREATININE Routine 05/14/2025 11:57 AM EDT HEPATITIS PANEL, GENERAL Routine 05/01/2025 10:02 AM EDT Psoriasis vulgaris Inverse psoriasis HIV 1/2 ANTIGEN/ANTIBODY, FOURTH GENERATION W/RFL Routine 05/01/2025 10:02 AM EDT Psoriasis vulgaris Inverse psoriasis HM DIABETES EYE EXAM Routine 04/07/2025 LIPID PANEL WITH REFLEX TO DIRECT LDL Routine 02/17/2025 11:39 AM EDT HPV MRNA E6/E7 REFLEX TO HPV 16, 18/45 Routine 09/27/2023 9:28 AM EST PAP SMEAR Routine 09/27/2023 9:28 AM EST Cervical cancer screening BI MAMMOGRAM SCREENING BILATERAL Routine 10/25/2021 10:01 AM EST from Last 3 Months or Most Recently Relevant to Health Maintenance Results * OCT, Optic Nerve - OU - Both Eyes (07/22/2025 2:30 PM EDT) Odalys Gonzalez, OD - 08/10/2025 2:03 PM EST Images from the original result were not included. OCT OPTIC NERVE INTERPRETATION Optical Coherence Tomography Interpretation Report Test Details: Measurements: OD OS C/D Horizontal 0.73 0.67 C/D Vertical 0.81 0.67 Disc area 1.66 mm 2 1.69 mm 2 RNFL Average 76 microns 74 microns Test findings: OD: Borderline RNFL thinning of inferior quadrant, normal RNFL thickness in all other quadrants OS: Definite RNFL thinning of nasal and inferior quadrants, normal RNFL thickness in superior and temporal quadrants Impression and Plan: Ocular hypertension in both eyes. Suspicious for development of glaucoma based on the OCT findings today. The patient is followed by Dr. Berman at [facility]. She was educated to keep all appointments with Dr. Berman as her condition could cause permanent loss of vision if it is not controlled. Will monitor here at her next complete eye exam as well. Odalys Christina OD OPHTH TOMOGRAPHY Final Result * TSH W/Reflex to FT4 (07/07/2025 10:18 AM EDT) TSH reflex Free T4 2.80 0.32 - 4.0 uIU/mL [facility] Blood Venous blood specimen / Unknown 07/07/2025 10:18 AM EDT 07/07/2025 11:45 AM EDT Mark Juan MD LAB BLOOD ORDERABLES Final Resul t [facility] [address] [place] [phone] * CBC auto differential (07/07/2025 10:18 AM EDT) White Blood Count 7.5 4.8 - 10.8 X10*3/uL [facility] Red Blood Count 4.43 4.20 - 5.50 X10*6/uL [facility] Hemoglobin 13.3 12.0 - 16.0 g/dl [facility] Hematocrit 40.4 37.0 - 47.0 % [facility] Mean Corpuscular Volume 91.2 80.0 - 98.0 fL [facility] Mean Corpuscular Hemoglobin 30.0 27.0 - 33.0 pg [facility] Mean Corpuscular HGB Conc 32.9 31.0 - 35.0 g/dl [facility] Red Cell Distribution Width 14.2 11.0 - 16.0 % [facility] Platelet Count 255 160 - 400 X10*3/uL [facility] Mean Platelet Volume 12.0 9.4 - 12.3 fL [facility] Neutrophils Percent Auto 66.4 45 - 73 % [facility] Imm Gran Pct Auto 0.4 0.0 - 0.4 % [facility] Lymphocytes Percent Auto 21.2 20 - 40 % [facility] Monocytes Percent Auto 8.8 2 - 11 % [facility] Eosinophils Percent Auto 2.5 0 - 4 % [facility] Basophils Percent Auto 0.7 0 - 2 % [facility] NRBC Pct Auto 0.0 0.0 - 0.2 /100WBC [facility] Neutrophils Absolute Auto 5.0 2.0 - 8.3 x10*3/uL [facility] Imm Gran Abs Auto 0.03 0.00 - 0.03 X10*3/uL [facility] Lymphocytes Absolute Auto 1.6 1.2 - 4.9 X10*3/uL [facility] Monocytes Absolute Auto 0.7 0.1 - 1.2 X10*3/uL [facility] Eosinophils Absolute Auto 0.2 0.0 - 0.4 X10*3/uL [facility] Basophils Absolute Auto 0.1 0.0 - 0.2 X10*3/uL [facility] NRBC Abs Auto 0.000 0.0 - 0.012 X10*3/uL [facility] Blood Venous blood specimen / Unknown 07/07/2025 10:18 AM EDT 07/07/2025 11:31 AM EDT us Mark Juan MD LAB BLOOD ORDERABLES Final Resul t [facility] [address] [place] [phone] * (ABNORMAL) Basic Metabolic Panel (07/07/2025 10:18 AM EDT) Sodium 143 135 - 145 mmol/L [facility] Potassium 3.7 3.3 - 5.1 mmol/L [facility] Chloride 102 96 - 108 mmol/L [facility] Carbon Dioxide 30(H) 22 - 29 mmol/L [facility] Anion Gap 15 12 - 20 [facility] Urea Nitrogen (BUN) 8(L) 9 - 16 mg/dL [facility] Creatinine, Serum 0.71 0.5 - 1.4 mg/dL [facility] Estimated Glomerular Filt Rate >60 [facility] Comment:Chronic Kidney Disea se: Estimated GFR < 60 mL/min/1.54n3Kkfkoq Kidney Disease: Estimated GFR < 15 mL/min/1.73m2 Glucose 214(H) 60 - 115 mg/dL [facility] Calcium 9.3 8.4 - 10.2 mg/dL [facility] Blood Venous blood specimen / Unknown 07/07/2025 10:18 AM EDT 07/07/2025 11:45 AM EDT us Mark Juan MD LAB BLOOD ORDERABLES Final Resul t [facility] [address] [place], [place] [phone] * (ABNORMAL) POCT Hgb A1c (07/07/2025 9:27 [...] Random Urine W/Creatinine (05/14/2025 11:57 AM EDT) Creatinine, Urine 321.28 mg/dL [facility] Microalbumin Urine 26.0 mg/L [facility] Microalbum Creatinine Ratio Ur 8.0 <30 ug/mg cr [facility] Comment:Albumin/Creatinine R atio Reference Ranges: Normal: < 30 ug/mg creatinine Microalbuminuria: 30 - 300 ug/mg creatinineClinical Albuminuria: > 300 ug/mg creatinine 05/14/2025 11:5 7 AM EDT 05/14/2025 1:16 PM EDT Mark Juan MD LAB URINE ORDERABLES Final Resul t [facility] [address] [place] [phone] * Hepatitis A,B,C Profile (05/01/2025 10:02 AM EDT) Hepatitis A IgM Nonreactive Nonreactive [facility] Comment:IgM antibodies to KINCAID V not detected; does not exclude earlyacute or recovered HAV infection. ~Hepatitis B Surface Antibody NONREACTIVE Nonreactive [facility] Comment:Nonreactive: < 8.00 mIU/mL Hepatitis B Core Antibody Nonreactive Nonreactive [facility] Hepatitis C Antibody Nonreactive Nonreactive [facility] Comment:Antibodies to HCV no t detected; does not exclude early acuteHCV infection. Hepatitis B Surface Ag Negative Negative [facility] Blood Venous blood specimen / Unknown 05/01/2025 10:02 AM EDT 05/01/2025 11:36 AM EDT Hugo Epps MD LAB BLOOD ORDERABLES Final Re sult Performing Organization Address [facility] [[email or web address]] Co de Phone Number [facility] [address] [place] [address] [phone] * HIV-1/2 Antigen and Antibodies, Fourth Generation, with Reflexes (05/01/2025 10:02 AM EDT) HIV AB/AG Nonreactive Nonreactive [facility] Comment:HIV-1 p24 Ag and/or HIV-1/HIV-2 Ab not detected.A test result that is nonreactive does not exclude thepossibility of exposure to or infection with HIV-1 and/orHIV-2. Nonreactive results in this assay for individualswith prior exposure to HIV-1 and/or HIV-2 may be due toantigen and antibody levels that are below the limit ofdetection of this assay.The [employer] HIV Ag/Ab Combo assay result andsupplemental assay results should be interpreted inconjunction with the patient's clinical presentation,history and other laboratory results. If the results areinconsistent with clinical evidence, additional testing issuggested to confirm the result. Blood Venous blood specimen / Unknown 05/01/2025 10:02 AM EDT 05/01/2025 11:36 AM EDT Hugo Epps MD LAB BLOOD ORDERABLES Final Re sult Performing Organization Address [facility] [[email or web address]] Co de Phone Number [facility] [address] [place] [address] [phone] * (ABNORMAL) Diabetes Eye Exam (04/07/2025) Eye Exam Abnormal(A ) Normal Comment:Vitreous Detachment (PVD) OS us Mark Juan MD HEALTH MAINTENANCE Final Result * Lipid Panel with Reflex to Direct LDL (02/17/2025 11:39 AM EDT) Triglycerides 103 <150 mg/dL [facility] Comment:Desirable Triglyceri de: less than 150 mg/dLBorderline High Triglyceride 150-199 mg/dLHigh Triglyceride: 200-499 mg/dLVery High Triglyceride: greater than or equal to 5OO mg/dL Cholesterol 165 <200 mg/dL [facility] Comment:Desirable Cholestero l: less than 200 mg/dLBorderline High Cholesterol: 200-239 mg/dLHigh Cholesterol: greater than 239 mg/dL LDL Cholesterol Calculated 96 <100 mg/dL [facility] Comment:Desirable LDL: less than 100 mg/dLNear Optimal/Above Optimal LDL: 110- 129 mg/dLBorderline High LDL: 130-159 mg/dLHigh LDL: 160-189 mg/dLVery High LDL: greater than or equal to 190 mg/dL HDL Cholesterol 49 >40 mg/dL [facility] Comment:Desirable HDL: great er than 40 mg/dL Note: This HDL assay may give artificially low results in patients with liver disease. 02/17/2025 11:3 9 AM EDT 02/17/2025 1:22 PM EDT us Mark Juan MD LAB BLOOD ORDERABLES Final Resul t [facility] [address] [place] [phone] [phone] * HPV mRNA E6/E7 w/Reflex to HPV Genotypes 16, 18/45 (09/27/2023 9:28 AM EST) HPV nRNA E6/E7 Not Detected Not Detected [facility] Comment:Methodology: Transcr iption-Mediated AmplificationThis assay detects E6/E7 viral messenger RNA (mRNA) from 14high-risk HPV types (16,18,31,33,35,39,45,51,52,56,58,59,66,68).Cervical sources are required for HPV testing.If a vaginal source from a patient who has had atotal hysterectomy with removal of cervix wassubmitted, please contact the testing laboratoryfor alternative testing options.For additional information, please refer [email or web address]/[email or web address](This link if provided for information/educational purposes only.)THIS TEST WAS PERFORMED AT:[facility] [place] [phone] QUEZADA MD HPV mRNA E6/E7 TNP [facility] HPV 16 RNA TNP [facility] HPV 18/45 [facility] 09/27/2023 9:28 AM EST 09/28/2023 9:30 AM EST us Latosha Dowling [facility] CYTOLOGY ORDERABLES F inal Result [facility] [address] [place] [phone] * Pap Smear (09/27/2023 9:28 AM EST) Swab Cervix uteri structure / Unknown 09/27/2023 9:28 AM EST 09/28/2023 9:30 AM EST Narrative [facility] - 10/02/2023 1:24 PM EST ----- ------- Name: Ann Ashley Maloney Age/Sex: 58/F : 1965 Unit#: [id number] Attend Dr: Re09/27/23 Status: PRE REF Location: [facility] Disch: ----- ------- SPEC : [id number] RECD: 09/28/23 STATUS: ANALIA TESFAYE NUM: [id number] NAT: 09/27/[address] [facility] DR: LATOSHA DOWLING CNM ENTERED: 09/28/23 SP TYPE: Pap Smr OTHR DR: ORDERED: Pap Smear Interpretation Satisfactory for evaluation. Fungal organisms consistent with Darcie species. Negative for intraepithelial lesion or malignancy. HPV mRNA E6/E7: NOT DETECTED This assay detects E6/E7 viral messenger RNA (mRNA) from 14 high-risk HPV types (16, 18, 31, 33, 35, 39, 45, 51, 52, 56, 58, 59, 66, 68) HPV testing performed by [facility], [place], [place]. See reference laboratory portion of the EMR for entire report. Clinical Information LMP: Unknown date Previous PAP test: Unknown date/findings Other history: Abnormal bleeding (history of PMB) Material Received ThinPrep-Cervical ----- ------- Signed (signature on file) DA Wilson (ASCP) 10/02/23 1324 ----- ------- END OF REPORT Latosha Dowling CNM LAB CYTOLOGY ORDERABLES F inal Result [facility] [address] [place] [phone] * Req: Mammogram (Screening); Bilateral (10/25/2021 10:01 AM EST) Anatomical Region Laterality Modality Breast Bilateral Mammography 10/25/2021 10:0 1 AM EST Narrative 10/25/2021 10:02 AM EST Refer to the Notes tab for result details [facility] Procedure: Req: Mammogram (Screening); Bilateral Procedure Note Provider, MD Miguel Angel - 12/17/2022 Refer to the Notes tab for result details Legacy Procedure: Req: Mammogram (Screening); Bilateral us Mark Name IMG BI PROCEDURES Final Result from Last 3 Months or Most Recently Relevant to Health Maintenance Additional Health Concerns Active Problems Noted Date [...] 08/28/2025 Patient has chronic kidney disease 08/28/2025 Insurance [place] [address] Care Teams Tone Cabinet Assembler Relationship Specialty Start Date End Date Name, MD Mark [address] [place] [address] PCP - General Family Medicine 01/18/16
--- OUTSIDE RECORDS SUMMARY | 2025-08-28 19:35 | XMS_ITS | Encounter Summary ---
Author Organization [employer] Address [address] [place] [address] 7 [place] [address] Care Team Providers Care Video Editing Intern Name Role Phone Name, Mark QUINTANA Primary Care Provider [phone] Veronica Mclaughlin PharmD Unavailable [phone] Reason for Visit * Reason Comments Med Refill Encounter Details Date Type Department Care Team ([facility] st Contact Info) Description 11/14/2023 Refill [facility] MED[facility]INE [address] [place], [place] [phone] Name, MD Mark 230 [place], [place] [phone] Social History Tobacco Use Types Packs/Day Years [...] Description 10/02/2025 2:00 PM EST Office Visit [facility] [address] [place], [place] [phone] Hugo Epps MD 230 [place] [address] documented as of this encounter Goals Goal Patient Goal Type Associated Problems Recent Progress Patient-Stated? Author Hemoglobin A1c < 7 Result Component 8(07/07/2025 9:27 AM EDT) No Veronica Mclaughlin PharmGene Record your blood sugar as directed [...] documented as of this encounter Care Teams Video Editing Intern Relationship Specialty Start Date End Date Name, MD Mark 230 [place] [address] PCP - General Family Medicine 01/18/16 Puia, Raul Martin [address] [place] [address] Pharmacist Internal Medicine 08/15/22 02/16/25 documented as of this encounter
--- OUTSIDE RECORDS SUMMARY | 2025-08-28 19:35 | XMS_ITS | Encounter Summary ---
Author Organization [employer] Address [address] [place] [address] 7 [place] [address] Care Team Providers Care Caregiver Services Home Name Role Phone Name, Mark QUINTANA Primary Care Provider [phone] Veronica Mclaughlin PharmD Unavailable [phone] Reason for Visit * Reason Comments Med Refill Encounter Details Date Type Department Care Team ([facility] st Contact Info) Description 11/01/2023 Refill [facility] MED[facility]INE 230 [place], [place] [phone] Puia Veronica, PharmD 230 [place] [address] Diabetes mellitus without complication (CMS/HCC) Social History [...] Description 10/02/2025 2:00 PM EST Office Visit [facility] MED[facility]INE [address] [place] [address] Hugo Epps MD [address] [place] [address] documented as of this encounter Goals Goal Patient Goal Type Associated Problems Recent Progress Patient-Stated? Author Hemoglobin A1c < 7 Result Component 8(07/07/2025 9:27 AM EDT) No PuiaVeronica, PharmD Record your [...] documented as of this encounter Care Teams Caregiver Services Home Relationship Specialty Start Date End Date Name, MD Mark [address] [place] [address] PCP - General Family Medicine 01/18/16 Veronica Mclaughlin, Raul [address] [place] [address] Pharmacist Internal Medicine 08/15/22 02/16/25 documented as of this encounter
--- OUTSIDE RECORDS SUMMARY | 2025-08-28 19:35 | XMS_ITS | Encounter Summary ---
Author Organization [employer] Address [address] [place] [address] 7 [place] [address] Care Team Providers Care Automotive Technician Name Role Phone Name, Mark QUINTANA Primary Care Provider [phone] Veronica Mclaughlin PharmD Unavailable [phone] Reason for Visit * Reason Comments Med Refill Encounter Details Date Type Department Care Team (Late st Contact Info) Description 06/08/2024 Refill [facility] [address] [place] [address] Name, MD Mark [address] [place] [address] Social History Tobacco Use Types Packs/Day Years [...] Description 10/02/2025 2:00 PM EST Office Visit [facility] MEDICINE 230 [place], [place] [phone] Hugo Epps MD [address] [place] [address] documented as of this encounter Goals Goal [...] documented as of this encounter Care Teams Automotive Technician Relationship Specialty Start Date End Date Name, MD Makr [address] [place] [address] PCP - General Family Medicine 01/18/16 Veronica Mclaughlin PharmD [address] [place] [address] Pharmacist Internal Medicine 08/15/22 02/16/25 documented as of this encounter
--- OUTSIDE RECORDS SUMMARY | 2025-08-28 19:35 | XMS_ITS | Encounter Summary ---
Author Organization [employer] Address [address] [facility] 7 [place] [address] Care Team Providers Care Clay Digger Name Role Phone Name, Mark QUINTANA Primary Care Provider [phone] Reason for Visit * Reason Comments Med Refill Encounter Details Date Type Department Care Team ([facility] st Contact Info) Description 08/26/2025 Refill [facility] MEDICINE 230 [place], [place] [phone] Hugo Epps MD 230 [place], [place] [phone] Psoriasis vulgaris; Inverse psoriasis Social History Tobacco [...] Description 10/02/2025 2:00 PM EST Office Visit [facility] MED[facility]INE [address] [place] [address] Hugo Epps MD 230 [place] [address] documented as of this encounter Goals Goal [...] type 2 diabetes No Sanford, Odalys, OD Weekly blood pressure [...] has chronic kidney disease No Atif Persaud documented as of this encounter Visit Diagnoses [...] 08/26/2025 Patient has chronic kidney disease 08/26/2025 Assessment Noted Time PHQ-9 Depression Total Score: 23 03/17/ 025 11:54 AM EDT documented as of this encounter Care Teams Clay Digger Relationship Specialty Start Date End Date Name, MD Mark 230 [place] [address] PCP - General Family Medicine 01/18/16 documented as of this encounter
--- OUTSIDE RECORDS SUMMARY | 2025-08-28 19:35 | XMS_ITS | Encounter Summary ---
Author Organization [employer] Address [address] [place] [address] 7 [place] [address] Care Team Providers Care Medical Collections Representative Name Role Phone Name, Mark QUINTANA Primary Care Provider [phone] Reason for Visit * Reason Onset Date Comments Appointment Request 08/26/2025 Encounter Details Date Type Department Care Team ([facility] st Contact Info) Description 08/26/2025 Telephone [facility] MEDICINE 230 [place], [place] [phone] Name, MD Mark 230 [place] [address] Appointment Request Social History Tobacco Use Types Packs/Day Years [...] encounter Miscellaneous Notes * Telephone Encounter - Kandi Carrillo MA - 08/27/2025 9:56 AM EST T/c pt agreed to come in 08/28 @3 * Telephone Encounter - Atif Persaud - 08/26/2025 3:20 PM EST Tc from pt requesting a call back stating around a month ago she had requested an appointment for Derm and still has not received a call back. Please contact pt at [phone]. (Arabic Speaker) documented in this encounter Plan of Treatment Upcoming Encounters Date Type Department Care Team (Late st Contact Info) Description 10/02/2025 2:00 PM EST Office Visit [facility] MED[facility]INE [address] [place] [address] Hugo Epps MD [address] [place] [address] documented as of this encounter Goals Goal [...] Care Plan Weekly blood pressure task No Sanfodr, Odalys, OD Patient has chronic kidney disease Care Plan Patient has chronic kidney disease No Sanford, Odalys, OD Weekly blood pressure task Care Plan Weekly blood pressure task No Tonia, Ivet, ORDER PICKER Weekly blood pressure task Care Plan Weekly blood pressure task No Tonia, Ivet, ORDER PICKER Patient has chronic kidney disease Care Plan Patient has chronic kidney disease No Tonia Ivet, ORDER PICKER Patient has chronic kidney disease Care Plan Patient has chronic kidney disease No Tonia, Ivet, ORDER PICKER Weekly blood pressure task Care Plan Weekly [...] filedocumented in this encounter Additional Health Concerns Active [...] documented as of this encounter Care Teams Medical Collections Representative Relationship Specialty Start Date End Date Name, MD Mark 230 [place] [address] PCP - General Family Medicine 01/18/16 documented as of this encounter
--- OUTSIDE RECORDS SUMMARY | 2025-08-28 19:35 | XMS_ITS | Encounter Summary ---
Author Organization [employer] Address 75 [facility] 7t [place] [address] Care Team Providers Care Airplane Flight Attendant Name Role Phone Name, Mark QUINTANA Primary Care Provider [phone] Encounter Details Date Type Department Care Team ([facility] st Contact Info) Description 08/28/2025 Refill [facility] 230 [place], [place] [phone] Name, MD Mark 230 [place] [address] Social History Tobacco Use Types Packs/Day Years [...] Description 10/02/2025 2:00 PM EST Office Visit [facility] 230 [place] [address] Hugo Epps MD 230 [place], [place] [phone] documented as of this encounter Goals Goal [...] Care Plan Weekly blood pressure task No Sanford Odalys, OD Patient has chronic kidney disease [...] blood pressure task No Ivet Chang PharmD Patient has chronic kidney disease Care Plan Patient has chronic kidney disease No Ivet Chang PharmD Patient has chronic kidney disease Care Plan Patient has chronic kidney disease No Ivet Chang PharmD Weekly blood pressure [...] documented as of this encounter Care Teams Airplane Flight Attendant Relationship Specialty Start Date End Date Name, MD Mark 230 [place] [address] PCP - General Family Medicine 01/18/16 documented as of this encounter
--- OUTSIDE RECORDS SUMMARY | 2025-08-28 19:35 | XMS_ITS | Encounter Summary ---
Author Organization [employer] Address [address] [place] [address] 7 [place] [address] Care Team Providers Care Hand Weaver Name Role Phone Name, Mark QUINTANA Primary Care Provider [phone] Veronica Mclaughlin PharmD Unavailable [phone] Reason for Visit * Reason Comments Med Refill Encounter Details Date Type Department Care Team ([facility] st Contact Info) Description 12/02/2024 Refill [facility] MEDICINE 230 [place], [place] [phone] Name, MD Mark 230 [place], [place] [phone] Social History Tobacco Use Types Packs/Day Years [...] Description 10/02/2025 2:00 PM EST Office Visit [facility] MEDICINE 230 [place], [place] [phone] Hugo Epps MD [address] [place] [address] documented as of this encounter Goals Goal [...] documented as of this encounter Care Teams Hand Weaver Relationship Specialty Start Date End Date Name, MD Mark [address] [place] [address] PCP - General Family Medicine 01/18/16 Puia, Raul Martin [address] [place] [address] Pharmacist Internal Medicine 08/15/22 02/16/25 documented as of this encounter
--- OUTSIDE RECORDS SUMMARY | 2025-08-28 19:35 | XMS_ITS | Encounter Summary ---
Author Organization [employer] Address [address] [place] [address] 7 [place] [address] Care Team Providers Care Playground Equipment Erector Name Role Phone Name, Mark QUINTANA Primary Care Provider [phone] Reason for Visit * Reason Onset Date Comments Med Refill 08/26/2025 Encounter Details Date Type Department Care Team ([facility] st Contact Info) Description 08/26/2025 Refill [facility] MEDICINE 230 [place], [place] [phone] Name, MD Mark 230 [place] [address] Tachycardia Social History Tobacco Use Types Packs/Day Years [...] encounter Miscellaneous Notes * Telephone Encounter - Atif Persaud - 08/26/2025 3:19 PM EST TC from pt requesting medication refill. Medications needing refill: clonazePAM (KlonoPIN) 0.5 MG tablet To be sent to: [facility] - [place], [place] - [address] [place] [address] documented in this encounter Plan of Treatment Upcoming Encounters Date Type Department Care Team ([facility] st Contact Info) Description 10/02/2025 2:00 PM EST Office Visit [facility] MEDICINE [address] [place] [address] Hugo Epps MD [address] [place] [address] documented as of this encounter Goals Goal [...] Plan Patient has chronic kidney disease No Sanofrd, Odalys, OD Weekly blood pressure task Care Plan Weekly blood pressure task No Sanford, Odalys, OD Patient has chronic kidney disease Care Plan Patient has chronic kidney disease No Sanford, Odalys, OD Weekly blood pressure task Care Plan Weekly blood pressure task No Tonia, Ivet, AUTO LEASING MANAGER Weekly blood pressure task Care Plan Weekly blood pressure task No Tonia Ivet, AUTO LEASING MANAGER Patient has chronic kidney disease Care Plan Patient has chronic kidney disease No ToniaAdrianne renterianifer, AUTO LEASING MANAGER Patient has chronic kidney disease Care Plan Patient has chronic kidney disease No Trini Randallfer, AUTO LEASING MANAGER Weekly blood pressure task Care Plan Weekly [...] as of this encounter Visit Diagnoses Diagnosis Tachycardia Unspecified tachycardia documented in this encounter Additional Health Concerns [...] documented as of this encounter Care Teams Playground Equipment Erector Relationship Specialty Start Date End Date Name, MD Mark 230 [place] [address] PCP - General Family Medicine 01/18/16 documented as of this encounter
--- OUTSIDE RECORDS SUMMARY | 2025-08-28 19:35 | XMS_ITS | Encounter Summary ---
Author Organization [employer] Address [address] [facility] 7 [place] [address] Care Team Providers Care Shrimp Cleaner Name Role Phone Name, Mark QUINTANA Primary Care Provider [phone] Reason for Visit * Reason Comments Med Refill Encounter Details Date Type Department Care Team ([facility] st Contact Info) Description 08/21/2025 Refill [facility] MEDICINE 230 [place], [place] [phone] Name, MD Mark 230 [place], [place] [phone] Tinea corporis; Diabetes mellitus without complication (HCC) Social History Tobacco Use Types Packs/Day Years [...] Description 10/02/2025 2:00 PM EST Office Visit [facility] MEDICINE 230 [place] [address] Hugo Epps MD [address] [place] [address] documented as of this encounter Goals Goal [...] Care Plan Weekly blood pressure task No SanfordAlexn, OD Help patients manage their type 2 diabetes Care Plan Help patients manage their type 2 diabetes No SanfordAlexn, OD Patient has chronic kidney disease Care Plan Patient has chronic kidney disease No SanfordAlexn, OD Weekly blood pressure task Care Plan Weekly blood pressure task No SanfordAlexn, OD Patient has chronic kidney disease Care Plan Patient has chronic kidney disease No Alex Christinan, OD documented as of this encounter Visit Diagnoses Diagnosis Tinea corporis Dermatophytosis of the body Diabetes mellitus without complication (HCC) Type II [...] 08/10/2025 Patient has chronic kidney disease 08/10/2025 Assessment Noted Time PHQ-9 Depression Total Score: 23 025 11:54 AM EDT documented as of this encounter Care Teams Shrimp Cleaner Relationship Specialty Start Date End Date Name, MD Mark 230 [place] [address] PCP - General Family Medicine 01/18/16 documented as of this encounter
--- OUTSIDE RECORDS SUMMARY | 2025-08-28 19:35 | XMS_ITS | Encounter Summary ---
Author Organization [employer] Address [address] [place] [address] 7 [place] [address] Care Team Providers Care Sanitation Worker Cleaning Machinery Name Role Phone Name, Mark QUINTANA Primary Care Provider [phone] Veronica Mclaughlin PharmD Unavailable [phone] Reason for Visit * Reason Comments Med Refill Encounter Details Date Type Department Care Team ([facility] Contact Info) Description 12/12/2022 Refill [facility] MEDICINE [address] [place] [phone] Name, MD Mark [address] [place] [address] [phone] Diabetes mellitus type 2 in obese ([facility]) Social History Tobacco Use Types [...] Department Care Team (Late Contact Info) Description 10/02/2025 2:00 PM EST Office Visit [facility] MEDICINE [address] [place] [address] [phone] Hugo Epps MD 230 [place] [address] documented as of this encounter Goals Goal Patient Goal Type Associated Problems Recent Progress Patient-Stated? Author Hemoglobin A1c < 7 Result Component 8(07/07/2025 9:27 AM EDT) No Veronica Mclaughlin, PharmD Record your blood sugar as directed Result Component No Veronica Mclaughlin PharmGene Note: Patient will use CGM, ensuring sensor is scanned at least once every 8 hours to capture 24H data. Check BG manually, as required. documented as of this encounter Visit Diagnoses Diagnosis Diabetes mellitus type 2 in obese Type II or unspecified type diabetes mellitus without mention of complication, not stated as uncontrolled documented in this encounter Care Teams Sanitation Worker Cleaning Machinery Relationship Specialty Start Date End Date Name, MD Mark [address] [place] [address] PCP - General Family Medicine 01/18/16 Veronica Mclaughlin, PharmD [address] [place] [address] Pharmacist Internal Medicine 08/15/22 02/16/25 documented as of this encounter
--- OUTSIDE RECORDS SUMMARY | 2025-08-28 19:35 | XMS_ITS | Encounter Summary ---
Author Organization [employer] Address 75 [facility] 7t [place] [address] Care Team Providers Care Early Childhood Specialist Name Role Phone Name, Mark QUINTANA Primary Care Provider [phone] Encounter Details Date Type Department Care Team (Latest Contact Info) Description 08/28/2025 Travel Social History Tobacco Use Types Packs/Day [...] Description 10/02/2025 2:00 PM EST Office Visit [facility] MEDICINE 230 [place] [address] Hugo Epps MD 230 [place] [address] documented as of this encounter Goals Goal [...] Weekly blood pressure task No Ivet Randall LEATHER GOODS I ASSEMBLER Patient has chronic kidney disease Care Plan [...] documented as of this encounter Care Teams Early Childhood Specialist Relationship Specialty Start Date End Date Name, MD Mark 230 [place] [address] PCP - General Family Medicine 01/18/16 documented as of this encounter
--- OUTSIDE RECORDS SUMMARY | 2025-08-28 19:35 | XMS_ITS | Encounter Summary ---
Author Organization [employer] Address [address] [facility] 7 [place] [address] Care Team Providers Care Hvac R Tech Name Role Phone Name, Mark QUINTANA Primary Care Provider [phone] Reason for Visit * Reason Comments Med Refill Encounter Details Date Type Department Care Team ([place] [facility] st Contact Info) Description 08/22/2025 Refill [facility] MEDICINE 230 [place], [place] [phone] Name, MD Mark 230 [place], [place] [phone] Diabetes mellitus without complication (HCC) Social History [...] Description 10/02/2025 2:00 PM EST Office Visit [facility] MEDICINE [address] [place] [address] Hugo Epps MD 230 [place] [address] documented as of this encounter Goals Goal [...] Care Plan Weekly blood pressure task No Alex Christinan, OD Help patients manage their type 2 diabetes Care Plan Help patients manage their type 2 diabetes No Alex Christinan, OD Patient has chronic kidney disease Care Plan Patient has chronic kidney disease No Alex Christinan, OD Weekly blood pressure task Care Plan Weekly blood pressure task No Alex Christinan, OD Patient has chronic kidney disease Care Plan Patient has chronic kidney disease No Odalys Christina, OD documented as of this encounter Visit [...] documented as of this encounter Care Teams Hvac R Tech Relationship Specialty Start Date End Date Name, MD Mark [address] [place] [address] PCP - General Family Medicine 01/18/16 documented as of this encounter
--- OUTSIDE RECORDS SUMMARY | 2025-08-28 19:35 | XMS_ITS | Encounter Summary ---
Author Organization [employer] Address [address] [place] [address] 7 [place] [address] Care Team Providers Care Rn Circulating Name Role Phone Name, Mark QUINTANA Primary Care Provider [phone] Reason for Visit * Reason Onset Date Comments Med Refill 08/26/2025 Encounter Details Date Type Department Care Team ([facility] st Contact Info) Description 08/26/2025 Telephone [facility] MEDICINE 230 [place], [place] [phone] Name, MD Mark [address] [place] [address] Med Refill Social History Tobacco Use Types Packs/Day Years [...] encounter Miscellaneous Notes * Telephone Encounter - Daria Villareal LPN - 08/26/2025 3:22 PM EST mometasone (Elocon) 0.1 % ointment is not pended * Telephone Encounter - Atif Persaud - 08/26/2025 3:16 PM EST TC from pt requesting medication refill. Medications needing refill: Fluocinolone Acetonide Scalp (Akins-Smoothe/FS Scalp) 0.01 % oil mometasone (Elocon) 0.1 % ointment To be sent to: [facility] - [place], [place] - [address] [facility] documented in this encounter Plan of Treatment Upcoming Encounters Date Type Department Care Team (Late st Contact Info) Description 10/02/2025 2:00 PM EST Office Visit [facility] MEDICINE 230 [place] [address] Hugo Epps MD [address] [place] [address] documented as of this encounter Goals Goal [...] Weekly blood pressure task No Ivet Randall EXPORT SPECIALIST Weekly blood pressure task Care Plan Weekly blood pressure task No Trini Randallfer EXPORT SPECIALIST Patient has chronic kidney disease Care Plan [...] documented as of this encounter Care Teams Rn Circulating Relationship Specialty Start Date End Date Name, MD Mark [address] [place] [address] PCP - General Family Medicine 01/18/16 documented as of this encounter
[2025-08-31 13:54] LABS: Quantiferon TB Gold Plus 1 NEGATIVE (NEGATIVE); TB Test (QFT) Mitogen -Nil >10.00 IU/mL; TB Test (QFT) Nil 0.04 IU/mL; TB Test (QFT) Plus TB1 -Nil 0.01 IU/mL; TB Test (QFT) Plus TB2 -Nil 0.02 IU/mL
== END 2025-08-28 15:36 | disposition home or self-care (01) ==
LOC: HO.HHCL 15:35
PROVIDERS: PCP Internal Medicine Geriatric Medicine; Visit Provider Internal Medicine
DX: Z11.1 Encounter for screening for respiratory tuberculosis (principal); L40.9 Psoriasis, unspecified
CPT/HCPCS: 36415; 86480